=== PATIENT | female | born 1955 | race Caucasian/White ===

== ENCOUNTER 2019-12-02 16:17 | Outpatient (CLI) | payer OTHER, SELFPAY ==
[2019-12-02 16:52] LABS: Basophils Percent Auto 0.6 % (0.2-1.2); Eosinophils Absolute Auto 0.4 K/mm3 (0-0.3); Eosinophils Percent Auto 5.4 % (0-4.4); Hematocrit 40.4 % (37.0-47.0); Hemoglobin 13.3 g/dL (12.0-15.0); Immature Granulocyte Absolute 0.01 K/mm3 (0.00-0.031); Immature Granulocyte Percent A 0.2 % (0-0.5); Lymphocytes Absolute Auto 1.79 K/mm3 (0.9-3.2); Mean Corpuscular HGB Conc 32.9 g/dl (32-36); Mean Corpuscular Hemoglobin 31.5 pg (26-34); Mean Corpuscular Volume 95.7 fl (80-100); Mean Platelet Volume 10.7 fl (7.4-10.4); Monocytes Absolute Auto 0.6 K/mm3 (0.1-0.6); Monocytes Percent Auto 9.5 % (2.6-8.5); Neutrophils Absolute Auto 3.8 K/mm3 (1.3-6.7); Neutrophils Percent Auto 57.3 % (45.5-73.1); Platelet Count Result 252 k/mm3 (150-375); Red Blood Count 4.22 M/mm3 (4.2-5.4); Red Cell Distribution Width 13.2 % (11.5-14.5); White Blood Count 6.6 K/mm3 (4.5-10.0)
[2019-12-02 17:51] LABS: Vitamin D 25 Hydroxy 48.6 ng/mL
[2019-12-09 14:42] LABS: Testosterone Free 0.8 pg/mL (0.2-5.0); Testosterone Total 16 ng/dL (2-45)
== END 2019-12-02 16:18 | disposition home or self-care (01) ==
PROVIDERS: PCP Family Medicine
DX: R53.83 Other fatigue (principal); R53.81 Other malaise; E55.9 Vitamin D deficiency, unspecified; M94.9 Disorder of cartilage, unspecified; M89.9 Disorder of bone, unspecified; Z01.812 Encounter for preprocedural laboratory examination
CPT/HCPCS: 36415; 82306; 84402; 84403; 85025

== ENCOUNTER 2020-05-31 06:54 | Outpatient (NON) | payer OTHER, SELFPAY ==
[2020-05-31 17:42] LABS: SARS-CoV-2 RNA PCR Positive
== END 2020-05-31 06:55 ==
LOC: ANHCOVIDDT 07:00
PROVIDERS: PCP Physician Assistant; Visit Provider Physician Assistant
DX: U07.1 COVID-19 (principal)
CPT/HCPCS: C9803; U0003

== ENCOUNTER → 2020-08-18 16:00 | Outpatient (CLI) | payer OTHER, SELFPAY ==
--- NOTE | ~2020-08-18 | XR_ITS ---
EXAMINATION: XR chest 2V 08/18/2020 16:20 INDICATION: Atypical chest pain PROCEDURE: 2 views of the chest COMPARISON: No prior studies for comparison. FINDINGS: No focal pneumonia, edema. There is left basilar atelectasis. The cardiomediastinal silhoue tte is within normal limits. There are no pleural effusions. There is no pneumothorax suspected. T here is scoliosis IMPRESSION: 1: Left basilar atelectasis. Reviewed, dictated and finalized at location B.
== END ==
PROVIDERS: Visit Provider Physician Assistant
DX: R07.89 Other chest pain (principal); R91.8 Other nonspecific abnormal finding of lung field
CPT/HCPCS: 71046

== ENCOUNTER → 2020-08-29 13:43 | Outpatient (CLI) | payer OTHER, SELFPAY ==
--- NOTE | ~2020-08-29 | XR_ITS ---
EXAMINATION: XR chest 2V DATE: 08/29/2020 14:31 INDICATION: Unspecified acute lower respiratory infection. TECHNIQUE: Frontal and lateral views of the chest were obtained. COMPARISON: Chest 2 views 08/18/2020 FINDINGS: There is mild scarring at the lung apices. No pleural effusion or pneumothorax. The heart s ize is normal. IMPRESSION: 1. Stable mild scarring at the lung apices. Reviewed, dictated and finalized at location A.
== END ==
PROVIDERS: PCP Physician Assistant; Visit Provider Physician Assistant
DX: J22 Unspecified acute lower respiratory infection (principal)
CPT/HCPCS: 71046

== ENCOUNTER → 2020-12-14 18:02 | Outpatient (CLI) | payer OTHER, SELFPAY ==
--- NOTE | ~2020-12-14 | DEXA_ITS ---
Bone Density Report Name: Mona Malone Age: 65 Sex: Female Ethnicity: White Date of : 1955 Indication: postmenopausal; screening for osteoporosis; height loss; prior fracture; Referring Provider: Sarath Boston Study: Bone densitometry was performed. Exam Date: December 14, 2020 Accession number: [id number] Bone Density: Region BMD T-score Z-score Classification AP Spine (L1-L4) 0.715 -3.0 -1.3 Osteoporosis Femoral Neck (Right) 0.554 -2.7 -1.2 Osteoporosis Total Hip (Right) 0.571 -3.0 -1.8 Osteoporosis World Health Organization criteria for BMD impression classify patients as: Normal (T-score at or above -1.0), Osteopenia (T-score between -1.0 and -2.5), or Osteoporosis (T-score at or below -2.5). 10-year Fracture Risk: FRAX not reported because: Some T-score for Spine Total or Hip Total or Femoral Neck at or below -2.5 Clinical Information Provided by Patient: Has had a low trauma fracture Has used the following medications: Vitamin D Patient maximum height was 68.5 Menopause Age: 46 No regular weight bearing exercise Drinks caffeinated beverages Onset of menses at age 16 Number of children 3 Impression: The patient has established osteoporosis, based on the Total Spine T-score and the existence of a prior fracture. The patient has risk factors, including: previous fracture. Discussion: HIGH RISK OF FRACTURE. BONE DENSITY IS UNDESIRABLY LOW AT ONE OR MORE SKELETAL SITES, CONSISTENT WITH POSTMENOPAUSAL OSTEOPOROSIS. This patient's lowest T-score, in a patient who has previously fractured, meets the World Health Organization's (WHO) criteria for severe osteoporosis. In untreated patients, the risk of osteoporotic fracture increases approximately two-fold for each 1.0 SD decrease in T-score. Low bone density is not the only risk factor for fracture; also consider factors such as patient's age, frailty or poor health, risk of falling, risk of injury, previous osteoporotic fracture, family history of osteoporosis, cigarette smoking, low body weight, etc. Not everyone with low bone mineral density has osteoporosis; osteomalacia and other metabolic bone disorders should also be considered. Patients who have osteoporosis should be evaluated for specific diseases and conditions (secondary causes) that may cause or contribute to bone loss. The [place] [employer]ocr[employer] (AACE) and National Osteoporosis Foundation (NOF) recommend pharmacologic intervention for all postmenopausal women whose T-score is in this range. The patient should follow a healthful lifestyle (good nutrition with adequate calcium and vitamin D, and appropriate weight-bearing exercise). Follow-Up: Consider a repeat BMD and Vertebral Fracture Assessment (VFA) exam in 2 years or sooner if medically necessary, to reassess this patient's status. Reported by: DEE on 0
== END ==
PROVIDERS: PCP Family Medicine; Visit Provider Family Medicine
DX: M81.0 Age-related osteoporosis without current pathological fracture (principal)
CPT/HCPCS: 77080

== ENCOUNTER → 2021-01-22 18:02 | Outpatient (CLI) | payer OTHER, SELFPAY ==
--- NOTE | ~2021-01-22 | XR_ITS ---
EXAMINATION: XR lumbar spine 2-3V DATE: 01/22/2021 18:40 INDICATION: Low back pain. TECHNIQUE: 3 views of lumbar spine were obtained. COMPARISON: Lumbar spine radiographs 11/17/2005 FINDINGS: There is 31 degrees levoscoliosis of thoracolumbar spine. There is 3 mm anterolisthesis of L4 on L5 and 5 mm anterolisthesis of L5 on S1. Vertebral body heights are normal. There is mildly dec reased disc height at L4-L5 and moderately decreased disc height at L5-S1. There is severe facet join t osteoarthritis in lower lumbar spine. There is a left hip arthroplasty. IMPRESSION: 1. Moderate lumbar spondylosis. 2. Thoracolumbar levoscoliosis. Reviewed, dictated and finalized at location A.
== END ==
PROVIDERS: PCP Family Medicine; Visit Provider Physician Assistant
DX: M47.896 Other spondylosis, lumbar region (principal)
CPT/HCPCS: 72100

== ENCOUNTER → 2023-02-10 15:12 | Outpatient (CLI) | payer MEDICARE, OTHER, SELFPAY ==
--- NOTE | ~2023-02-10 | XR_ITS ---
EXAMINATION: XR shoulder LT min 2V DATE: 02/10/2023 15:27 INDICATION: Left shoulder pain TECHNIQUE: AP internally and externally rotated, AP oblique externally rotated and axillary views of the left shoulder were obtained. COMPARISON: None FINDINGS: Normal alignment. No fracture. Mild glenohumeral osteoarthritis with mild nonuniform joint space henrry rowing and small marginal osteophyte along the inferior humeral head. Minimal acromioclavicular osteo arthritis. Soft tissues are unremarkable. IMPRESSION: The left glenohumeral and minimal acromioclavicular osteoarthritis. No acute osseous abnormality. Reviewed, dictated and finalized at location A. IMPRESSION: The left glenohumeral and minimal acromioclavicular osteoarthritis. No acute os seous abnormality.
== END ==
PROVIDERS: PCP Physician Assistant; Visit Provider Physician Assistant
DX: M19.012 Primary osteoarthritis, left shoulder (principal)
CPT/HCPCS: 73030

== ENCOUNTER 2023-08-18 12:31 | Outpatient (CLI) | payer MEDICARE, OTHER, SELFPAY ==
--- NOTE | ~2023-08-18 | XR_ITS ---
EXAMINATION: XR shoulder RT min 2V INDICATION: Right shoulder pain TECHNIQUE: Four views of the right shoulder are submitted. COMPARISON: None FINDINGS: Normal alignment. No fracture. Glenohumeral and acromioclavicular joint spaces are normal. Soft tissues are unremarkable. Thoracic dextroscoliosis is noted. IMPRESSION: 1. No acute osseous abnormality. Reviewed, dictated and finalized at location F.
== END 2023-08-18 12:32 ==
PROVIDERS: PCP Physician Assistant; Visit Provider Physician Assistant
DX: M25.511 Pain in right shoulder (principal)
CPT/HCPCS: 73030

== ENCOUNTER 2023-09-09 08:18 | Outpatient (CLI) | payer MEDICARE, OTHER, SELFPAY ==
--- NOTE | ~2023-09-09 | XR_ITS ---
EXAMINATION: XR lg joint inject/asp w image DATE: 09/09/2023 09:21 INDICATION: Right shoulder pain TECHNIQUE: A time-out was performed to verify the patient's name, date of , and procedure to b e performed. The procedure including the risks, benefits, and alternatives was discussed with the pat ient. Risks discussed included bleeding and infection. The patient understood the risks and agreed to proceed. The skin overlying the rotator cuff interval of the right glenohumeral joint was prepped a nd draped in usual sterile fashion. Anesthetic was administered with 1% lidocaine subcutaneously. A 22 G needle was advanced under fluoroscopic guidance into the joint. Injection of 1 mL of Omnipaque 240 confirmed intra-articular position of the needle. Subsequently, injectate consisting of 4 mm a 3:1 mixture of 1% lidocaine: 40 mg/mL Kenalog for a total dosage of 40 mg Kenalog was instilled. Wash out of contrast was seen confirming intra-articular administration. The needle was removed and the en try site was cleaned and dressed. There were no immediate complications. Fluoroscopy exposure time w as 0.1 minutes. The total number of images was 2. FINDINGS: Real-time fluoroscopy demonstrates the needle in the right glenohumeral joint. Patient's pa in prior to procedure:1/10. Patient's pain following the procedure: 0/10. IMPRESSION: 1. Successful right glenohumeral joint injection of local anesthetic and steroid with decrease in the patient's presenting pain. Reviewed, dictated and finalized at location A. IMPRESSION: 1. Successful right glenohumeral joint injection of local anesthetic and steroi d with decrease in the patient's presenting pain.
== END 2023-09-09 08:19 | disposition home or self-care (01) ==
LOC: ANHIMG 08:20
PROVIDERS: PCP Physician Assistant; Visit Provider Physician Assistant
DX: M25.511 Pain in right shoulder (principal)
CPT/HCPCS: 20610; 77002; J3301; Q9966

== ENCOUNTER 2023-10-02 10:01 | Outpatient (CLI) | payer MEDICARE, OTHER, SELFPAY ==
--- NOTE | ~2023-10-02 | MR_ITS ---
MRI of the right shoulder Technique: Axial proton-density fat-sat images, coronal proton density fat-sat and T2 fat-sat images, and sagittal T1-weighted and T2 fat-sat images were acquired. Clinical History: Pain Findings: There is mild AC joint degenerative change. No subacromial spur evident. Coracoclavicular, coracoacromial, and coracohumeral ligaments are intact. There is severe supraspinatus tendinosis and mild infraspinatus tendinosis. Questionable minimal burs al surface fraying of the distal posterior supraspinatus tendon, no high-grade partial or full-thickn ess tear evident. Subscapularis tendon is intact with mild to moderate tendinosis. Tendon of the long head of the biceps is intact. There is probable tearing at the superior labrum, without definite anterior or posterior extension. There is diffuse high-grade chondromalacia the glenohumeral joint with small inferior medial humeral head osteophyte. Inferior glenohumeral ligament is intact. There is a moderate glenohumeral joint eff usion with debris or synovitis at the axillary pouch region. There is fluid distention of the subacro mial/subdeltoid bursa. No muscle atrophy or edema evident. Impression: Rotator cuff tendinosis, as detailed above, with questionable minimal bursal surface fraying of the d istal, posterior supraspinatus tendon. No high-grade partial or full-thickness rotator cuff tear seen . Superior labral tear without anterior or posterior extension. Moderate degenerative change of the glenohumeral joint, as detailed above, with associated moderate g lenohumeral joint effusion with debris or synovitis of the axillary pouch. Subacromial/subdeltoid bursitis. Reviewed, dictated and finalized at location . Impression: Rotator cuff tendinosis, as detailed above, with questionable minimal bursal nichols rface fraying of the distal, posterior supraspinatus tendon. No high-grade part ial or full-thickness rotator cuff tear seen. Superior labral tear without anterior or posterior extension. Moderate degenerative change of the glenohumeral joint, as detailed above, with associated moderate glenohumeral joint effusion with debris or synovitis of th e axillary pouch. Subacromial/subdeltoid bursitis.
== END 2023-10-02 10:02 ==
LOC: MICIMG 10:02
PROVIDERS: PCP Physician Assistant; Visit Provider Physician Assistant
DX: M75.51 Bursitis of right shoulder (principal); M19.011 Primary osteoarthritis, right shoulder
CPT/HCPCS: 73221

== ENCOUNTER 2024-09-14 18:04 | Emergency (ER) | payer MEDICARE, OTHER, SELFPAY ==
[2024-09-14 18:06] VITALS: BP 167/93; PULSE 92; RESP 14; TEMP 36.6; O2SAT 100
--- OUTSIDE RECORDS SUMMARY | 2024-09-14 18:30 | XMS_ITS | Clinical Summary ---
Author Organization [facility] [place] Address [facility] [place] [address] Care Team Providers Care Account Manager Sales Representative Name Role Phone Candido Mosqueda MD Unavailable [phone] Sarath Boston MD Primary Care Provider [phone] Allergies Active Allergy Reactions Criticality Noted Date Comments Adhesive Redness Low 08/15/2020 Clindamycin Nausea & Vomiting Low 05/23/2022 Erythromycin Stomach upset Low 06/13/2020 Stomach/GI Upset Morphine Hallucinations Medium 08/15/2020 Sodclmvh-Bpnrfnxvxw-Zgp ymyxin Swelling Medium 08/15/2020 redness Penicillins Unknown 10/30/2018 As a child. Tolerated Ancef 2 gms with hip replacement 09/07/20. Shellfish Nausea & Vomiting Low 02/20/2022 Medications Trelegy Ellipta 100-62.5-25 mcg inhaler Inhale 1 puff daily 1 Active pregabalin (LYRICA) 200 mg capsule Take 200 mg by mouth 2 (two) times a day 1 Active alendronate (FOSAMAX) 70 mg tablet Take 70 mg by mouth every 7 days Active fluticasone propionate (FLONASE) 50 mcg/actuation nasal spray Administer 1 spray into each nostril daily Active pantoprazole DR (PROTONIX) 40 mg EC tablet Take 40 mg by mouth daily Active Dupixent Pen pen injector Inject 300 mg under the skin every 14 (fourteen) days and 15 of the month 2 Active propranoloL (INDERAL) 40 mg tabletIndicatio ns:Essential Tremor Take 40 mg by mouth 2 (two) times a day Active albuterol HFA (PROVENTIL HFA,VENTOLIN HFA,PROAIR HFA) 90 mcg/actuation inhaler Inhale 2 puffs every 6 (six) hours as needed for wheezing Active cyclobenzaprine (FLEXERIL) 10 mg tablet Take 10 mg by mouth 3 (three) times a day as needed for muscle spasms Active acetaminophen (TYLENOL) 325 mg tablet Take 650 mg by mouth every 6 (six) hours as needed for pain Active diphenhydrAMINE (BENADRYL) 25 mg capsule Take 50 mg by mouth nightly as needed for sleep Active pseudoephedrine (SUDAFED) 30 mg tabletIndicatio ns:Nasal Congestion Take 30 mg by mouth every 4 (four) hours as needed for congestion Active multivitamin/ir on/folic acid (CENTRUM COMPLETE ORAL) Take 1 tablet by mouth daily Active UNABLE TO FIND Take 2 each by mouth daily Med Name: Prevagen dietary supplement for memory loss Active meloxicam (MOBIC) 15 mg tablet Take 1 tablet (15 mg total) by mouth daily 30 tablet 1 3 Active Active Problems Problem Noted Date Diagnosed Date Primary osteoarthritis of right hip 05/14/2022 Overview (05/14/2022): Added automatically from request for surgery [id number] Hoarseness 02/04/2021 Shortness of breath 02/04/2021 Intractable vomiting 09/13/2020 History of total left hip replacement 09/13/2020 Primary osteoarthritis of left hip 08/10/2020 Overview (08/10/2020): Added automatically from request for surgery [id number] Arthralgia of shoulder 02/18/2012 Aerophagia Immunizations Immunization Administration Dates Next Due [employer] ([employer]) SARS-CoV-2 Vaccination 08/03/2020 Surgical History Surgery Date Site/Laterality Comments VEIN LIGATION COLONOSCOPY Medical History Medical History Date Comments ADHD (attention deficit hyperactivity disorder) Osteoarthritis Primary osteoarthritis of left hip GERD (gastroesophageal reflux disease) Alopecia Allergic rhinitis Autoimmune disease Nasal drainage Change in voice Hoarseness Nasal congestion Family History Medical History Relation Name Comments Cancer Father Arthritis Mother Relation Name Status Comments Father Mother Social History Tobacco Use Types Packs/Day Years Used Date Smoking Tobacco: Former Cigarettes 2 5 1 982 - 1987 Smokeless Tobacco: Never Tobacco Cessation:Counseling Given: Not Answered Alcohol Use Standard Drinks/Week Comments Not Currently 0 (1 standard drink = 0.6 oz pur e alcohol) recovering alcoholic AUDIT-C Answer Date Recorded Q1: How often do you have a drink containing alcohol? Never 06/28/2022 Q2: How many drinks containi ng alcohol do you have on a typical day when you are drinking? Patient does not drink Q3: How often do you have si x or more drinks on one occasion? 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 Not on file Not on file Obstetrics History Para Term AB IAB SAB Ectopic Multiple Livin g Live Births 3 3 3 Date Outcome GA Total Labor Labor/2nd/3rd Weight Sex Type Anes PTL Jacquie A1 A5 Name Clin Term Term Term Last Filed Vital Signs Vital Sign Reading Time Taken Comments Blood Pressure 107/59 06/29/2022 8:15 AM TEST ENGINE EVALUATOR Pulse 68 06/29/2022 8:15 AM TEST ENGINE EVALUATOR Temperature 36.3 C (97.4 F) 06/29/2022 4:00 AM TEST ENGINE EVALUATOR Respiratory Rate 16 06/29/2022 8:15 AM TEST ENGINE EVALUATOR Oxygen Saturation 100% 06/29/2022 8:15 AM TEST ENGINE EVALUATOR Inhaled Oxygen Concentration - - Weight 66.3 kg (146 lb 2.6 oz) 06/28/2022 8:00 A M TEST ENGINE EVALUATOR Height 172.7 cm (5' 8 ) 06/28/2022 8:00 AM TEST ENGINE EVALUATOR Body Mass Index 22.22 06/28/2022 8:00 AM TEST ENGINE EVALUATOR Plan of Treatment Health Maintenance Due Date Last Done Comments Colon Cancer Screening-Colonoscopy 1955 Depression Screening 1955 Hepatitis C Screening 1955 Osteoporosis Screening-Bone Density Scan 1956 Hepatitis B Screening 1974 Pneumococcal vaccine 65+ (1 of 1 - PCV) 2006 Zoster Vaccine (1 of 2) 2006 Well Visit 65+ 2021 Fall Risk Assessment 06/29/2023 06/29/2022 Covid-19 Vaccine (2 - 2023-2 5 season) 2024 08/03/2020 Influenza Vaccine (#1) 2024 , 01/24/2022, 03/06/2021, Additional history exists Breast Cancer Screening-Mammogram 06/12/2024 024, 08/04/2017 DTaP/Tdap/Td Vaccine (2 - Td or Tdap) 06/24/2028 06/24/2018 Medical Devices Implanted Type Area Record Systems Analyst Device Identifier Shelf Expiration Date Model / Serial / Lot [employer] [id number] Screw Bone Trident Ii L35mm Od6.5mm Low Profile Hexagonal Sterile - [id number] Implanted:Qty: 1 on 09/07/2020 by Candido Mosqueda MD at [facility] Left: Hip [employer] [id number] 11/21/2024 3863-2049 / / [id number] Avi Bi[employer]rep Bone Preparation Kit Medium Restrictor Implanted:Qty: 1 on 09/07/2020 by Candido Mosqueda MD at [facility] Left: Hip [employer] 02/23/2025 9617-925-385 / / [id number] Description:item listed / ch arged on supply screen [employer] [id number] V40 36mm Anatomic Hip +0mm Offset Taper Head Femoral Biolox Delta - [id number] Implanted:Qty: 1 on 09/07/2020 by Candido Mosqueda MD at [facility] Left: Hip [employer] [id number] 05/16/2025 [id number] / / [id number] [employer] 9015-6172 Screw Bone Trident Ii L50mm Od6.5mm Low Profile Hexagonal Sterile - [id number] Implanted:Qty: 1 on 09/07/2020 by Candido Mosqueda MD at [facility] Left: Hip [employer] [id number] 03/31/2024 2245-9459 / / [id number] [employer] [id number] Shell Acetabular Trident Ii Tritanium F Od56mm Hip 5 Screw Hole Cluster Sterile - [id number] Implanted:Qty: 1 on 09/07/2020 by Candido Mosqueda MD at [facility] Left: Hip [employer] [id number] 04/25/2025 702-04-56F / / [id number] [employer] 5761-0953 Screw Bone Trident Ii L35mm Od6.5mm Low Profile Hexagonal Sterile - [id number] Implanted:Qty: 1 on 09/07/2020 by Candido Mosqueda MD at [facility] Left: Hip [employer] [id number] 05/04/2024 8317-7371 / / [id number] [employer] 0434-1342 Screw Bone Trident Ii L20mm Od6.5mm Low Profile Hexagonal Sterile - [id number] Implanted:Qty: 1 on 09/07/2020 by Candido Mosqueda MD at [facility] Left: Hip [employer] [id number] 03/28/2025 0516-1685 / / [id number] [employer] 623-00-36f 36mm 7.9mm Hip 0d F Liner Acetabular X3 - [id number] Implanted:Qty: 1 on 09/07/2020 by Candido Mosqueda MD at [facility] Left: Hip [employer] [id number] 06/19/2025 623-00-36F / / [id number] [employer] 6191-1-010 Simplex P Radiopaque Full Dose Cement Bone Sterile - [id number] Implanted:Qty: 1 on 09/07/2020 by Candido Mosqueda MD at [facility] Left: Hip [employer] 05/25/2021 6191-1-010 / / [id number] [employer] 6191-1-010 Simplex P Radiopaque Full Dose Cement Bone Sterile - [id number] Implanted:Qty: 1 on 09/07/2020 by Candido Mosqueda MD at [facility] Left: Hip [employer] 05/25/2021 6191-1-010 / / [id number] [employer] 0580-1-442 Honaker V40 Cemented Hip 2 44mm Offset Stem Femoral - [id number] - [id number] Implanted:Qty: 1 on 09/07/2020 by Candido Mosqueda MD at [facility] Left: Hip [employer] [id number] 07/08/2021 0580-1-442 / [id number] / [id number] [employer] Simplex P Radiopaque Full Dose Cement Bone Sterile 6191-1-010 - [id number] Implanted:Qty: 1 on 06/28/2022 by Candido Mosqueda MD at [facility] Right: Hip [employer] 11/22/2024 6191-1-010 / / [id number] [employer] Simplex P Radiopaque Full Dose Cement Bone Sterile 6191-1-010 - [id number] Implanted:Qty: 1 on 06/28/2022 by Candido Mosqueda MD at [facility] Right: Hip [employer] 11/22/2024 6191-1-010 / / [id number] [employer] Bioprep Preparation Plug School Bus Aide [place] Curette Suction Femoral [id number] - [id number] Implanted:Qty: 1 on 06/28/2022 by Candido Mosqueda MD at [facility] Right: Hip [employer] 02/23/2027 [id number] / / [id number] [employer] Shell Acetabular Trident Ii Tritanium E Od54mm Hip 5 Screw Hole Cluster Sterile 702-04-54e - [id number] Implanted:Qty: 1 on 06/28/2022 by Candido Mosqueda MD at [facility] Right: Hip [employer] [id number] 04/03/2027 702-04-54E / / [id number] [employer] Screw Bone Trident Ii L50mm Od6.5mm Low Profile Hexagonal Sterile 7579-1260 - [id number] Implanted:Qty: 1 on 06/28/2022 by Candido Mosqueda MD at [facility] Right: Hip [employer] [id number] 03/19/2027 4070-9134 / / [id number] [employer] Screw Bone Trident Ii L25mm Od6.5mm Low Profile Hexagonal Sterile 0655-0056 - [id number] Implanted:Qty: 1 on 06/28/2022 by Candido Mosqueda MD at [facility] Right: Hip [employer] [id number] 04/29/2027 1243-3171 / / [id number] [employer] Insert Trident 0deg X3 36mm Id 723-00-36e - [id number] Implanted:Qty: 1 on 06/28/2022 by Candido Mosqueda MD at [facility] Right: Hip [employer] [id number] 04/26/2027 723-00-36E / / [id number] [employer] Honaker V40 Cemented Hip 1 37.5mm Offset Stem Femoral 0580-1-371 - [id number] - [id number] Implanted:Qty: 1 on 06/28/2022 by Candido Mosqueda MD at [facility] Right: Hip [employer] [id number] 01/30/2027 0580-1-371 / [id number] / [id number] [employer] V40 36mm Anatomic Hip +0mm Offset Taper Head Femoral Biol[employer] Delta [id number] - [id number] Implanted:Qty: 1 on 06/28/2022 by Candido Mosqueda MD at [facility] Right: Hip [employer] [id number] 03/20/2027 [id number] / / [id number] Procedures Procedure Name Priority Date/Time Associated Diagnosis Comments SCREENING MAMMOGRAM BILATERAL W JOSE LUIS Schedule Routine, Read Routine (OP Routine) 06/12/2023 11:19 AM TEST ENGINE EVALUATOR Encounter for screening mammogram for malignant neoplasm of breast from Last 3 Months or Most Recently Relevant to Health Maintenance Results * Screening Mammogram Bilateral W Jose Luis (06/12/2023 11:19 AM TEST ENGINE EVALUATOR) Anatomical Region Laterality Modality Breast Bilateral Mammography Impressions 06/12/2023 11:45 AM TEST ENGINE EVALUATOR BI-RADS ATLAS category (overall): 1 - Negative There is no mammographic evidence of malignancy. A 1 year screening mammogram is recommended. The patient has been or will be contacted. We recommend annual screening mammography for women at average risk of breast cancer beginning at age 40, based on guidelines of the [employer] (ACR Practice Parameter for the Performance of Screening and Diagnostic Mammography) and [employer]. For women with and elevated risk of breast cancer, please refer to the ACR Practice Parameter for specific screening recommendations. The patient will be entered into a reminder system with a target due date of 1 year for her next screening exam. Narrative 06/12/2023 11:45 AM TEST ENGINE EVALUATOR Screening Mammogram Bilateral W Jose Luis: 06/12/23 The study was acquired using full field digital technology and interpreted from soft copy. 2D digital mammographic views, as well as 3D digital tomosynthesis were performed in the CC and MLO projections. CLINICAL: Encounter for screening mammogram for malignant neoplasm of breast. No relevant medical history has been documented for this patient. No known family history of breast cancer. COMPARISONS: 08/04/2017 Screening Mammogram Bilateral W Jose Luis 10/20/2007 Screening Mammogram 2D Bilateral BREAST TISSUE: The breasts have scattered areas of fibroglandular density. FINDINGS: No suspicious masses, suspicious calcifications, or other suspicious findings are seen within either breast. There has been no suspicious change. us Sarath Boston MD IMG MAMMO PROCEDURES Final Re sult from Last 3 Months or Most Recently Relevant to Health Maintenance Insurance [facility] CLAIMS [facility] CLAIMS MEDICARE MEDICARE FOR LIFE Advance Directives For more information, please contact: [phone] Documents on File Type Date Recorded Patient Anesthesiologist/Physician Expl anation Advance Directives and Livin g Will 11/22/2020 1:27 PM ADVANCE DIRECTIVE 09/07/2020 11:41 AM * Full Code (Latest Code Status on File) Date Activated Date Inactivated Comments 06/28/2022 2:04 PM 06/29/2022 6:15 PM * Full Code Date Activated Date Inactivated Comments 09/13/2020 2:46 PM 09/15/2020 10:36 PM * Full Code Date Activated Date Inactivated Comments 09/07/2020 4:30 PM 09/08/2020 7:07 PM Care Teams Account Manager Sales Representative Relationship Specialty Start Date End Date Sarath Boston MD [address] [place], [place] [address], [place] [address] PCP - General Family Medicine 11/30/20 Candido Mosqueda MD [address] [facility] [address] [place] [address] Consulting Physician Orthopedic Surgery 09/08/20
--- OUTSIDE RECORDS SUMMARY | 2024-09-14 18:30 | XMS_ITS | Encounter Summary ---
Author Organization [facility] Address [address] [place] [address] Care Team Providers Care Insurance Underwriter Name Role Phone Unavailable Primary Care Provider Unavailabl e Encounter Details Date Type Department Care Team (Late st Contact Info) Description 07/12/2019 Lab Requisition [facility] [address] [place] [id number] Eliazar Harris MD [address] [place] [address] Social History Tobacco Use Types Packs/Day Years Used Date Smoking Tobacco: Never Assessed Comments Unknown Sex and Gender Information Value Date Recorded Sex Assigned at Not on file Legal Sex Female 10:43 AM CATIA DESIGNER Gender Identity Not on file Sexual Orientation Not on file documented as of this encounter Plan of Treatment Not on file documented as of this encounter Procedures Procedure Name Priority Date/Time Associated Diagnosis Comments DERMATOPATHOLOGY Routine 07/08/2019 12:0 0 AM CATIA DESIGNER documented in this encounter Results * DERMATOPATHOLOGY (07/08/2019 12:00 AM CATIA DESIGNER) Case Report Dermatopathology Report Case: [id number] Authorizing Provider: Eliazar Harris MD Collected: 07/08/2019 12:00 AM Ordering Location: [facility] Received: 07/12/2019 11:01 AM Pathologist: Kena Cortés MD Specimens: A) - Skin, left FA B) - Skin, right hand 0 1:01 PM CATIA DESIGNER DERMATOPATHOLOGY LABORATORY Final Diagnosis Specimen A. SKIN, left FA: HYPERTROPHIC ACTINIC KERATOSIS, PIGMENTED (L57.0) Specimen B. SKIN, right hand: BENIGN VERRUCOUS KERATOSIS (L82.1) EPIDERMAL NECROSIS SUGGESTIVE OF EXCORIATION (L98.499) 0 1:01 PM [facility] DERMATOPATHOLOGY LABORATORY Clinical History A: Nevus vs MM vs other. 01E535. B: Dermatitis vs prurigo. 24T809. 0 1:01 PM [facility] DERMATOPATHOLOGY LABORATORY Gross Description Specimen A: Received is one formalin filled container labeled with the patient's name and designated left FA. The specimen consists of a shave biopsy measuring 0d5j8hs. Jar 0. Specimen B: Received is one formalin filled container labeled with the patient's name and designated right hand. The specimen consists of a shave biopsy measuring 3l0e1ld. Jar 0. 0 1:01 PM [facility] DERMATOPATHOLOGY LABORATORY Microscopic Description Specimen A. SKIN, left FA: There is alternating orthokeratosis and parakeratosis. Along the undersurface of the epidermis, there are buds of atypical keratinocytes in a disorderly arrangement. There is prominent pigmentation in some of the keratinocytes. Specimen B. SKIN, right hand: Sections show hyperkeratosis, papillomatosis, hypergranulosis, and acanthosis. These histological findings can be seen in a verruca vulgaris or a seborrheic keratosis. The epidermis is focally necrotic and covered with a scale-crust. There is fibrin at the base. 0 1:01 PM [facility] DERMATOPATHOLOGY LABORATORY Disclaimer An external and internal positive and negative controls are appropriate for the histochemical, immunohistochemical and immunofluorescence stain(s) in this case (if any), except where stated explicitly. The performance characteristics of the stain(s) cited in this report were developed and its performance characteristic determined by the Dermatopathology Laboratory at [facility], directed by Dr. Ginny Cortés. These tests need not be, and therefore are not, approved by the [place] Food and Drug Administration. The tests are used for clinical purposes. Billing Codes Specimen Charges Stain Charges 27188 27800 1 1 0 1:01 PM [facility] DERMATOPATHOLOGY LABORATORY Embedded Images 0 1:01 PM [facility] DERMATOPATHOLOGY LABORATORY Pathology/Cytology TISSUE SPECIMEN FROM SKIN / Unknown 07/08/2019 07/12/2019 11:01 AM [facility] Miscellaneous samples (specimen) TISSUE SPECIMEN FROM SKIN / Unknown 07/08/2019 07/12/2019 11:01 AM CATIA DESIGNER us Eliazar Harris MD LAB - PATHOLOGY/CYTOLOGY ORDER JOYCE Final Result DERMATOPATHOLOGY LABORATORY [facility] - Department of Dermatology [address] [place] [address], 5th [place] [address], [facility] [phone] documented in this encounter Visit Diagnoses Not on filedocumented in this encounter
--- OUTSIDE RECORDS SUMMARY | 2024-09-14 18:30 | XMS_ITS | Referral Summary ---
Author Organization [facility] Address [address] [place] [address] Care Team Providers Care Furniture Manager Name Role Phone Candido Mosqueda MD Unavailable [phone] Sarath Boston MD Primary Care Provider [phone] Allergies Active Allergy Reactions Criticality Noted Date Comments Adhesive Redness Low 08/15/2020 Clindamycin Nausea & Vomiting Low 05/23/2022 Erythromycin Stomach upset Low 06/13/2020 Stomach/GI Upset Morphine Hallucinations Medium 08/15/2020 Jkozweqs-Jwiqreejbn-Sfz ymyxin Swelling Medium 08/15/2020 redness Penicillins Unknown [...] the skin every 14 (fourteen) days and 15th of the month 2 Active propranoloL (INDERAL) [...] (05/14/2022): Added automatically from request for surgery [id number] Hoarseness 02/04/2021 Shortness of breath 02/04/2021 Intractable vomiting 09/13/2020 History of total left hip replacement 09/13/2020 Primary osteoarthritis of left hip 08/10/2020 Overview (08/10/2020): Added automatically from request for surgery [id number] Arthralgia of shoulder 02/18/2012 Aerophagia Immunizations Immunization Administration Dates Next Due Masterseek (J&J) SARS-CoV-2 Vaccination 08/03/2020 Social History Tobacco Use Types Packs/Day Years Used Date Smoking Tobacco: Former Cigarettes 2 5 1 982 - 1986 Smokeless Tobacco: Never Tobacco Cessation:Counseling Given: Not [...] on file Legal Sex Female 9:29 PM HOG COOLER Gender Identity Not on file Sexual Orientation Not on file Occupation Industry Job Start Date Job End Date [employer] Not on file Not on file Not on file Last Filed Vital Signs Vital Sign Reading Time Taken Comments Blood Pressure 107/59 06/29/2022 8:15 AM HOG COOLER Pulse 68 06/29/2022 8:15 AM HOG COOLER Temperature 36.3 C (97.4 F) 06/29/2022 4:00 AM HOG COOLER Respiratory Rate 16 06/29/2022 8:15 AM HOG COOLER Oxygen Saturation 100% 06/29/2022 8:15 AM HOG COOLER Inhaled Oxygen Concentration - - Weight 66.3 kg (146 lb 2.6 oz) 06/28/2022 8:00 A M HOG COOLER Height 172.7 cm (5' 8 ) 06/28/2022 8:00 AM HOG COOLER Body Mass Index 22.22 06/28/2022 8:00 AM HOG COOLER Plan of Treatment Not on file Medical Devices Implanted Type Area Geriatric Social Worker Device Identifier Shelf Expiration Date Model / Serial / Lot [employer] 4829-7577 Screw Bone Trident Ii L35mm Od6.5mm Low Profile Hexagonal Sterile - [id number] Implanted:Qty: 1 on 09/07/2020 by Candido Mosqueda MD at [facility] Left: Hip [employer] [id number] 11/21/2024 8217-8062 / / [id number] [employer] Preparation Kit Medium Restrictor Implanted:Qty: 1 on 09/07/2020 by Candido Mosqueda MD at [facility] Left: Hip [employer] 02/23/2025 1057-910-750 / / [id number] Description:item listed / ch arged on supply screen [employer] [id number] V40 36mm Anatomic Hip +0mm Offset Taper Head Femoral Biolox Delta - [id number] Implanted:Qty: 1 on 09/07/2020 by Candido Mosqueda MD at [facility] Left: Hip [employer] [id number] 05/16/2025 [id number] / / [id number] [employer] 2856-0480 Screw Bone Trident Ii L50mm Od6.5mm Low Profile Hexagonal Sterile - [id number] Implanted:Qty: 1 on 09/07/2020 by Candido Mosqueda MD at [facility] Left: Hip [employer] [id number] 03/31/2024 2132-2843 / / [id number] [employer] 702--56f Shell Acetabular Trident Ii Tritanium F Od56mm Hip 5 Screw Hole Cluster Sterile - [id number] Implanted:Qty: 1 on 09/07/2020 by Candido Mosqueda MD at [facility] Left: Hip [employer] [id number] 04/25/2025 702-04-56F / / [id number] [employer] 9797-5179 Screw Bone Trident Ii L35mm Od6.5mm Low Profile Hexagonal Sterile - [id number] Implanted:Qty: 1 on 09/07/2020 by Candido Mosqueda MD at [facility] Left: Hip [employer] [id number] 05/04/2024 3161-9014 / / [id number] [employer] 5435-5350 Screw Bone Trident Ii L20mm Od6.5mm Low Profile Hexagonal Sterile - [id number] Implanted:Qty: 1 on 09/07/2020 by Candido Mosqueda MD at [facility] Left: Hip [employer] [id number] 03/28/2025 0887-2472 / / [id number] [employer] 623-00-36f 36mm 7.9mm Hip 0d F Liner Acetabular X3 - [id number] Implanted:Qty: 1 on 09/07/2020 by Candido Mosqueda MD at [facility] Left: Hip [employer] [id number] 06/19/2025 623-00-36F / / [id number] [employer] 6191-1-010 Simplex P Radiopaque Full Dose Cement Bone Sterile - [id number] Implanted:Qty: 1 on 09/07/2020 by Candido Mosqueda MD at [facility] Left: Hip [employer] 05/25/2021 6191-1-010 / / [id number] [employer] 6191-1-010 Simplex P Radiopaque Full Dose Cement Bone Sterile - [id number] Implanted:Qty: 1 on 09/07/2020 by Candido Mosqueda MD at [facility] Left: Hip [employer] 05/25/2021 6191-1-010 / / [id number] [employer] 0580-1-442 [place] V40 Cemented Hip 2 44mm Offset Stem Femoral - [id number] - [id number] Implanted:Qty: 1 on 09/07/2020 by Candido Mosqueda MD at [facility] Left: Hip [employer] [id number] 07/08/2021 0580-1-442 / [id number] / [id number] [employer] Simplex P Radiopaque Full Dose Cement Bone Sterile 6191-1-010 - [id number] Implanted:Qty: 1 on 06/28/2022 by Candido Mosqueda MD at [facility] Right: Hip [employer] 11/22/2024 6191-1-010 / / [id number] [employer] Simplex P Radiopaque Full Dose Cement Bone Sterile 6191-1-010 - [id number] Implanted:Qty: 1 on 06/28/2022 by Candido Mosqueda MD at [facility] Right: Hip [employer] 11/22/2024 6191-1-010 / / [id number] [employer] Bi[employer]rep Preparation Plug Category Manager [place] Curette Suction Femoral [id number] - [id number] Implanted:Qty: 1 on 06/28/2022 by Candido Mosqueda MD at [facility] Right: Hip [employer] 02/23/2027 [id number] / / [id number] [employer] Shell Acetabular Trident Ii Tritanium E Od54mm Hip 5 Screw Hole Cluster Sterile 702-04-54e - [id number] Implanted:Qty: 1 on 06/28/2022 by Candido Mosqueda MD at [facility] Right: Hip [employer] [id number] 04/03/2027 702-04-54E / / [id number] [employer] Screw Bone Trident Ii L50mm Od6.5mm Low Profile Hexagonal Sterile 4674-7159 - [id number] Implanted:Qty: 1 on 06/28/2022 by Candido Mosqueda MD at [facility] Right: Hip [employer] [id number] 03/19/2027 3090-6178 / / [id number] [employer] Screw Bone Trident Ii L25mm Od6.5mm Low Profile Hexagonal Sterile 6724-0135 - [id number] Implanted:Qty: 1 on 06/28/2022 by Candido Mosqueda MD at [facility] Right: Hip [employer] [id number] 04/29/2027 5860-8331 / / [id number] [employer] Insert Trident 0deg X3 36mm Id 723-00-36e - [id number] Implanted:Qty: 1 on 06/28/2022 by Candido Mosqueda MD at [facility] Right: Hip [employer] [id number] 04/26/2027 723-00-36E / / [id number] [employer] [place] V40 Cemented Hip 1 37.5mm Offset Stem Femoral 0580-1-371 - [id number] - [id number] Implanted:Qty: 1 on 06/28/2022 by Candido Mosqueda MD at [facility] Right: Hip [employer] [id number] 01/30/2027 0580-1-371 / [id number] / [id number] [employer] V40 36mm Anatomic Hip +0mm Offset Taper Head Femoral Biol[employer] Delta [id number] - [id number] Implanted:Qty: 1 on 06/28/2022 by Candido Mosqueda MD at [facility] Right: Hip [employer] [id number] 03/20/2027 [id number] / / [id number] Procedures Procedure Name Priority Date/Time Associated Diagnosis Comments SCREENING MAMMOGRAM BILATERAL W JOSE LUIS Schedule Routine, Read Routine (OP Routine) 06/12/2023 11:19 AM HOG COOLER Encounter for screening mammogram for malignant neoplasm of breast from Last 3 Months or Most Recently Relevant to Health Maintenance Results * Screening Mammogram Bilateral W Jose Luis (06/12/2023 11:19 AM HOG COOLER) Anatomical Region Laterality Modality Breast Bilateral Mammography Impressions 06/12/2023 11:45 AM HOG COOLER BI-RADS ATLAS category (overall): 1 - Negative There is no mammographic evidence of malignancy. A 1 year screening mammogram is recommended. The patient has been or will be contacted. We recommend annual screening mammography for women at average risk of breast cancer beginning at age 40, based on guidelines of the [place] [employer] (ACR Practice Parameter for the Performance of Screening and Diagnostic Mammography) and [place] [employer]. For women with and elevated risk of breast cancer, please refer to the ACR Practice Parameter for specific screening recommendations. The patient will be entered into a reminder system with a target due date of 1 year for her next screening exam. Narrative 06/12/2023 11:45 AM HOG COOLER Screening Mammogram Bilateral W Jose Luis: 06/12/23 [...] Most Recently Relevant to Health Maintenance Insurance [facility] CLAIMS [facility] CLAIMS MEDICARE MEDICARE [facility] Advance Directives For more information, please contact: [phone] Documents on File Type Date Recorded Patient Researcher Expl anation Advance Directives and Livin g [...] 4:30 PM 09/08/2020 7:07 PM Care Teams Furniture Manager Relationship Specialty Start Date End Date Sarath Boston MD [address] [place] [id number] PCP - General Family Medicine 11/30/20 Candido Mosqueda MD [address] [address] Consulting Physician Orthopedic Surgery 09/08/20
--- OUTSIDE RECORDS SUMMARY | 2024-09-14 18:30 | XMS_ITS | Clinical Summary ---
Author Organization [facility] Address [facility] [place] [address] Care Team Providers Care Instructor Kindergarten Name Role Phone Sarath Boston MD Primary Care Provider [phone] Allergies Active Allergy Reactions Criticality Noted Date Comments Clindamycin Nausea and Vomiting Low 05/23/2022 Erythromycin GI Upset Low 06/13/2020 Stomach/GI Upset Morphine Hallucinations Medium 08/15/2020 Neomycin-Bacitracin Zn-Polymyx Swelling Medium 08/15/2020 redness Penicillins Rash,Unknown Medium 10/30/2018 As a child. Tolerated Ancef 2 gms with hip replacement 09/07/20. Shellfish-Derived Products Unknown 02/20/2022 Tape Redness Low 08/15/2020 Medications alendronate 70 MG tablet 1 Active pregabalin 200 MG capsule pregabalin 200 mg capsule 1 Active pantoprazole EC 40 MG tablet 1 Active fluticasone propionate 50 MCG/ACT nasal spray fluticasone propionate 50 mcg/actuation nasal spray,suspension Active HYDROcodone-rayshawn taminophen 5-325 MG tablet 1 Active albuterol sulfate HFA 108 (90 Base) MCG/ACT inhaler albuterol sulfate HFA 90 mcg/actuation aerosol inhaler Active diphenhydrAMINE 25 MG capsule Take 1 capsule (25 mg total) by mouth every 6 (six) hours as needed for Itching. Active pseudoephedrine 30 MG tablet Take 1 tablet (30 mg total) by mouth every 4 (four) hours as needed for Congestion. Active Naproxen Sodium 220 MG Cap Active DUPIXENT 300 MG/2ML Solution Pen-injector 2 Active cyclobenzaprine (FLEXERIL) 10 MG tablet 2 Active acetaminophen (TYLENOL) 325 MG tablet Take 2 tablets (650 mg total) by mouth every 6 (six) hours as needed for Pain. Active propranolol (INDERAL) 40 MG tablet Active fluticasone-chantale meterol (ADVAIR HFA) 230-21 MCG/ACT inhalerIndicati ons:JACINTO (dyspnea on exertion) Inhale 2 puffs into the lungs 2 (two) times daily. Rinse and spit after use 12 g 6 3 Active Additional Information Patient not taking.Reported on 10/03/2023 montelukast (SINGULAIR) 10 MG tabletIndicatio ns:Seasonal allergies Take 1 tablet (10 mg total) by mouth nightly at bedtime. 30 tablet 6 4 Active Active Problems Problem Noted Date Diagnosed Date History of COVID-19 04/03/2021 Aerophagia 04/03/2021 Hoarseness 02/04/2021 Shortness of breath 02/04/2021 History of total left hip replacement 09/13/2020 Intractable vomiting 09/13/2020 Primary osteoarthritis of left hip 08/10/2020 Overview (04/03/2021): Added automatically from request for surgery [id number] Arthralgia of shoulder 02/18/2012 Encounters Date Type Department Care Team Description 06/16/2024 Telephone [facility] - [address] [place] [address] Jose M Sosa MD Reschedule from Last 3 Months Immunizations Immunization Administration Dates Next Due Hepatitis A (Havrix [address]) 06/24/2018 Influenza Adult (Generic) 01/24/2022,04/2021,02/10/2020,2018,06/11/2018,04/12/2016 GIL (SHEELA & Ixchelsis) COVID-19 AD26 VACCINE 0.5 ML IM SUSP 08/03/2020 Tdap (Generic) 06/24/2018 Family History Medical History Relation Comments Arthritis Brother Asthma Brother Asthma Daughter Cancer Father Melanoma Arthritis Mother Cancer Mother Basal cell carci noma Relation Status Comments Brother Daughter Father Mother Social History Tobacco Use Types Packs/Day Years Used Date Smoking Tobacco: Former Cigarettes 2 4 1 06/26/1982 - 04/25/1987 Smokeless Tobacco: Never Tobacco Cessation:Counseling Given: Yes Alcohol Use Standard Drinks/Week Comments Not Currently 0 (1 standard drink = 0.6 oz pur e alcohol) Havent drank im 39 years PHQ-2 Answer Date Recorded Patient Health Questionnaire-2 Score 0 09/13/2022 Comments No Sex and Gender Information Value Date Recorded Sex Assigned at Not on file Legal Sex Female 7:42 PM CDT Gender Identity Not on file Sexual Orientation Not on file Last Filed Vital Signs Vital Sign Reading Time Taken Comments Blood Pressure 128/88 04/09/2024 10:52 AM PIANO AND ORGAN REFINISHER Pulse 72 04/09/2024 10:52 AM PIANO AND ORGAN REFINISHER Temperature 36.5 C (97.7 F) 04/09/2024 10:52 AM PIANO AND ORGAN REFINISHER Respiratory Rate 18 04/09/2024 10:52 AM PIANO AND ORGAN REFINISHER Oxygen Saturation 99% 04/09/2024 10:52 AM PIANO AND ORGAN REFINISHER RA Inhaled Oxygen Concentration - - Weight 69.4 kg (153 lb) 04/09/2024 10:52 AM PIANO AND ORGAN REFINISHER Height 172.7 cm (5' 8 ) 04/09/2024 10:52 AM PIANO AND ORGAN REFINISHER Body Mass Index 23.26 04/09/2024 10:52 AM PIANO AND ORGAN REFINISHER Plan of Treatment Health Maintenance Due Date Last Done Comments Hepatitis C 1974 Pneumococcal Vaccine: 50+ Years (1 of 2 - PCV) 1975 Zoster Vaccines (1 of 2) 2006 RSV Immunization or 60+ Years (1 - Risk 60-74 years 1-dose series) 2016 Annual Medicare Wellness Visit 2021 Dexa Scan (General) 2021 COVID-19 Vaccine (3 - 2023-2 5 season) 2024 03/23/2021, 08/03/2020 PHQ-2 (Physician [place]) 05/26/2024 09/13/2022 Mammogram Screening 06/12/2025 06/12/2023, 08/04/2017 DTaP, Tdap and Td Vaccines ( 2 - Td or Tdap) 06/24/2028 06/24/2018 Colorectal Cancer Screening Colonoscopy (10 Years) 02/21/2032 02/20/2022, 02/20/2022 Meningococcal B Vaccine Aged Out No l onger eligible based on patient's age to complete this topic Meningococcal Vaccine Aged Out No juan jose mari eligible based on patient's age to complete this topic RSV Immunizations Under 20 Months Aged Out No longer eligible b ased on patient's age to complete this topic Procedures Procedure Name Priority Date/Time Associated Diagnosis Comments COLONOSCOPY Routine 02/20/2022 8:42 AM CDT from Last 3 Months or Most Recently Relevant to Health Maintenance Insurance [facility] [employer] MEDICARE Care Teams Instructor Kindergarten Relationship Specialty Start Date End Date Sarath Boston MD [address] [place] [address] PCP - General FAMILY PRACTICE 12/25/20
--- OUTSIDE RECORDS SUMMARY | 2024-09-14 18:30 | XMS_ITS | Continuity of Care Document ---
Author Name [facility] Organization [facility] Care Team Providers Care Insecticide Sprayer Name Role Phone [facility] Unavailable Unavailable Medications Combined list of outpatient medications from Department of Defense and Veterans Affairs facilities.Medications provided include 1) outpatient medications from the last 15 months, and 2) patient-reported medications. Medication Details Route Status Patient Instructions Prescription Expires Prescription Number Last Dispense Date Ordering Provider Order Date Order Qty Source CELECOXIB (celecoxib) , 200 MG, CAPSULE, ORAL, AUROBINDO PHARM, 100 ea. BOTTLE Cancele d [id number] : 2023 0 Pharmac y Data Transac tion Service Facilit y CELECOXIB (celecoxib) , 200 MG, CAPSULE, ORAL, AUROBINDO PHARM, 100 ea. BOTTLE Active [id number] 4 2023 14 Pharmac y Data Transac tion Service Facilit y DUPIXENT PEN (dupilumab) , 300 MG/2ML, PEN INJCTR, SUBCUT, SANOFI-AVEN TIS, 2 ml SYRINGE Cancele d [id number] : 2023 0 Pharmac y Data Transac tion Service Facilit y DUPIXENT PEN (dupilumab) , 300 MG/2ML, PEN INJCTR, SUBCUT, SANOFI-AVEN TIS, 2 ml SYRINGE Active [id number] 2023 8 Pharmac y Data Transac tion Service Facilit y DUPIXENT PEN (dupilumab) , 300 MG/2ML, PEN INJCTR, SUBCUT, SANOFI-AVEN TIS, 2 ml SYRINGE Active [id number] 2023 8 Pharmac y Data Transac tion Service Facilit y HYDROCODONE -ACETAMINOP HEN (HYDROCODON E/ACETAMINO PHEN), 5MG-325MG, TABLET, ORAL, MALLINCKROD T PH, 500 ea. BOTTLE Cancele d [id number] : 2023 0 Pharmac y Data Transac tion Service Facilit y HYDROCODONE -ACETAMINOP HEN (HYDROCODON E/ACETAMINO PHEN), 5MG-325MG, TABLET, ORAL, MALLINCKROD T PH, 500 ea. BOTTLE Active [id number] 4 2023 20 Pharmac y Data Transac tion Service Facilit y HYDROCODONE -ACETAMINOP HEN (HYDROCODON E/ACETAMINO PHEN), 7.5-325MG, TABLET, ORAL, MALLINCKROD T PH, 500 ea. BOTTLE Active [id number] 4 2023 90 Pharmac y Data Transac tion Service Facilit y HYDROCODONE -ACETAMINOP HEN (HYDROCODON E/ACETAMINO PHEN), 7.5-325MG, TABLET, ORAL, MALLINCKROD T PH, 500 ea. BOTTLE Active [id number] 4 2023 90 Pharmac y Data Transac tion Service Facilit y HYDROCODONE -ACETAMINOP HEN (HYDROCODON E/ACETAMINO PHEN), 7.5-325MG, TABLET, ORAL, MALLINCKROD T PH, 500 ea. BOTTLE Active [id number] 4 2023 90 Pharmac y Data Transac tion Service Facilit y HYDROCODONE -ACETAMINOP HEN (HYDROCODON E/ACETAMINO PHEN), 7.5-325MG, TABLET, ORAL, MALLINCKROD T PH, 500 ea. BOTTLE Active [id number] 4 2023 90 Pharmac y Data Transac tion Service Facilit y HYDROCODONE -ACETAMINOP HEN (HYDROCODON E/ACETAMINO PHEN), 7.5-325MG, TABLET, ORAL, MALLINCKROD T PH, 500 ea. BOTTLE Active [id number] 2023 90 Pharmac y Data Transac tion Service Facilit y HYDROXYZINE HCL (hydroxyzin e HCl), 25 MG, TABLET, ORAL, RISING PHARM, 500 ea. BOTTLE Active [id number] 4 2023 30 Pharmac y Data Transac tion Service Facilit y METHYLPREDN ISOLONE (methylpred nisolone), 4 MG, TAB DS PK, ORAL, [employer]Skunk, 21 ea. DOSE-PACK Active [id number] 4 2023 21 Pharmac y Data Transac tion Service Facilit y PREGABALIN (pregabalin ), 200 MG, CAPSULE, ORAL, [employer], 90 ea. BOTTLE Cancele d [id number] : 2023 0 Pharmac y Data Transac tion Service Facilit y PREGABALIN (pregabalin ), 200 MG, CAPSULE, ORAL, EXELAN PHARMACE, 90 ea. BOTTLE Active [id number] 4 2023 120 Pharmac y Data Transac tion Service Facilit y PREGABALIN (pregabalin ), 200 MG, CAPSULE, ORAL, NOVADOZ PHARMAC, 90 ea. BOTTLE Active [id number] 4 2023 120 Pharmac y Data Transac tion Service Facilit y SCOPOLAMINE (scopolamin e), 1 MG/3 DAY, PATCH TD 3, TRANSDERM, INGENUS PHARMAC, 4 ea. BOX Active [id number] 4 2023 4 Pharmac y Data Transac tion Service Facilit y Immunizations Combined list of available immunizations from the Department of Defense and Veterans Affairs facilities. Immunization Series Date Given Administered By Site Reaction Lot Number CVX Code Drug Pasteurizing Machine Operator Status Comments Source COVID-19, mRNA, LNP-S, PF, 100 mcg or 50 mcg dose 2021 Method CRM, [employer] (MOD) Not Given COVID-19, mRNA, LNP-S, PF, 100 mcg or 50 mcg dose DoD zoster recombinant 2021 AMIRAH, () Not Given zoster recombina nt DoD COVID-19, mRNA, LNP-S, PF, 100 mcg or 50 mcg dose 2020 Method CRM, [employer] (MOD) Not Given COVID-19, mRNA, LNP-S, PF, 100 mcg or 50 mcg dose DoD Social History Combined list of available smoking, tobacco, and other social history from Department of Defense and Veterans Affairs facilities. Social History Type Response Date Comment [facility] e This section is an empty social history section. DoD
--- OUTSIDE RECORDS SUMMARY | 2024-09-14 18:31 | XMS_ITS | Encounter Summary ---
Author Organization [facility] Address [address] [address] Care Team Providers Care Data Entry Email Processor Name Role Phone Unavailable Primary Care Provider Unavailabl e Encounter Details Date Type Department Care Team (Late st Contact Info) Description 07/30/2019 Lab Requisition [facility] [address] [place] [id number] Eliazar Harris MD [address] [address] Social History Tobacco Use Types Packs/Day Years Used Date Smoking Tobacco: Never Assessed Comments Unknown Sex and Gender Information Value Date Recorded Sex Assigned at Not on file Legal Sex Female 10:43 AM PUBLICITY CONSULTANT Gender Identity Not on file Sexual Orientation Not on file documented as of this encounter Plan of Treatment Not on file documented as of this encounter Procedures Procedure Name Priority Date/Time Associated Diagnosis Comments DERMATOPATHOLOGY Routine 07/28/2019 12:0 0 AM PUBLICITY CONSULTANT documented in this encounter Results * DERMATOPATHOLOGY (07/28/2019 12:00 AM PUBLICITY CONSULTANT) Case Report Dermatopathology Report Case: [id number] Authorizing Provider: Eliazar Harris MD Collected: 07/28/2019 12:00 AM Ordering Location: [facility] Received: 07/30/2019 06:32 AM Pathologist: Ella Watts MD Specimen: Skin, right calf 0 1:54 PM CDT DERMATOPATHOLOGY LABORATORY Final Diagnosis Specimen A. SKIN, right calf: LICHEN SIMPLEX CHRONICUS (L28.0) STASIS DERMATITIS (L30.8) 0 1:54 PM CDT DERMATOPATHOLOGY LABORATORY Clinical History LP vs other. Path# [id number] 0 1:54 PM CDT DERMATOPATHOLOGY LABORATORY Gross Description Specimen A: Received is one formalin filled container labeled with the patient's name and designated right calf. The specimen consists of a shave biopsy measuring 10x6x1 mm. Jar 0. 0 1:54 PM CDT DERMATOPATHOLOGY LABORATORY Microscopic Description Specimen A. SKIN, right calf: Sections show acanthosis, hypergranulosis, and hyperkeratosis. The papillary dermis is fibrotic. There is focal spongiosis. The dermis shows a sparse, perivascular lymphocytic infiltrate surrounding dilated, thick-walled vessels, which are increased in number. 0 1:54 PM CDT DERMATOPATHOLOGY LABORATORY Disclaimer An external and internal positive and negative controls are appropriate for the histochemical, immunohistochemical and immunofluorescence stain(s) in this case (if any), except where stated explicitly. The performance characteristics of the stain(s) cited in this report were developed and its performance characteristic determined by the Dermatopathology Laboratory at [facility], directed by Dr. Ginny Cortés. These tests need not be, and therefore are not, approved by the [place] Food and Drug Administration. The tests are used for clinical purposes. Billing Codes Specimen Charges Stain Charges 80415 1 0 1:54 PM CDT DERMATOPATHOLOGY LABORATORY Embedded Images 0 1:54 PM CDT DERMATOPATHOLOGY LABORATORY Pathology/Cytolog y TISSUE SPECIMEN FROM SKIN / Unknown 07/28/2019 07/30/2019 6:32 AM PUBLICITY CONSULTANT us Eliazar Harris MD LAB - PATHOLOGY/CYTOLOGY ORDER JOYCE Final Result DERMATOPATHOLOGY LABORATORY [facility] - Department of Dermatology [address] [place] [address], [address] [place] [address], [facility] [phone] documented in this encounter Visit Diagnoses Not on filedocumented in this encounter
--- OUTSIDE RECORDS SUMMARY | 2024-09-14 18:31 | XMS_ITS | Encounter Summary ---
Author Organization [facility] Address [address] [place] [address] Care Team Providers Care Clinical Review Nurse Name Role Phone Sarath Boston MD Primary Care Provider [phone] Encounter Details Date Type Department Care Team (Late st Contact Info) Description 11/20/2022 MyChart Message Enc [facility] [address] [place], [place] [id number] [place], [facility] Provider Air Quality Message Social History Tobacco Use Types Packs/Day Years Used Date Smoking Tobacco: Former Cigarettes 2 4 1 6 - 1989 Smokeless Tobacco: Never Alcohol Use Standard Drinks/Week Comments Not Currently 0 (1 standard drink = 0.6 oz pur e alcohol) PHQ-2 Answer Date Recorded Patient Health Questionnaire-2 Score 0 09/13/2022 Comments No Sex and Gender Information Value Date Recorded Sex Assigned at Not on file Legal Sex Female 7:42 PM CDT Gender Identity Not on file Sexual Orientation Not on file documented as of this encounter Plan of Treatment Not on file documented as of this encounter Visit Diagnoses Not on filedocumented in this encounter Additional Health Concerns Assessment Noted Time PHQ-9 Depression Total Score: 0 04/03/20 21 8:37 AM MICROBIOLOGY TECHNOLOGIST documented as of this encounter Care Teams Clinical Review Nurse Relationship Specialty Start Date End Date Sarath Boston MD [address] [place] [id number] PCP - General FAMILY PRACTICE 12/25/20 documented as of this encounter
--- OUTSIDE RECORDS SUMMARY | 2024-09-14 18:31 | XMS_ITS | Encounter Summary ---
Author Organization [facility] Address 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
--- OUTSIDE RECORDS SUMMARY | 2024-09-14 18:31 | XMS_ITS | Encounter Summary ---
Author Organization [facility] Address [address] [place] [address] Care Team Providers Care Holistic Pulser Name Role Phone Unavailable Primary Care Provider Unavailabl e Encounter Details Date Type Department Care Team (Latest Contact Info) Description 10/31/2008 Outpatient Historical [facility] NicholsMichel MD [address] [place] [address] [place] [phone] Uncomplicated Varicose Veins Social History Tobacco Use Types Packs/Day Years Used Date Smoking Tobacco: Never Assessed Comments Unknown Sex and Gender Information Value Date Recorded Sex Assigned at Not on file Legal Sex Female 5:43 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
--- OUTSIDE RECORDS SUMMARY | 2024-09-14 18:31 | XMS_ITS | Encounter Summary ---
Author Organization [facility] Address [address] [place] [address] Care Team Providers Care Packing And Shipping Clerk Name Role Phone Unavailable Primary Care Provider Unavailabl e Encounter Details Date Type Department Care Team (Latest Contact Info) Description 09/27/2008 Outpatient Historical [facility] NicholsMichel MD [address] [place] [address] [place] [phone] Uncomplicated Varicose Veins Social History Tobacco Use Types Packs/Day Years Used Date Smoking Tobacco: Never Assessed Comments Unknown Sex and Gender Information Value Date Recorded Sex Assigned at Not on file Legal Sex Female 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
--- OUTSIDE RECORDS SUMMARY | 2024-09-14 18:31 | XMS_ITS | Data Portability ---
Author Organization [employer], [facility] Address [address] [place] [address] Assessment Encounter Date Assessment Date Assessment LastModified by Organization Details LastModified Time 08/19/2022 08/19/2022 Incidental radiological finding of fibroid Calcified appearance on US Clinically asymptomatic Unable to do a BME today- recent hip surgery. Pathophysiology of fibroids and their benign nature explained. Instructed to return if s/s develop. Otherwise no surgical intervention necessary. [email or web address] Not available 10/29/2022 22:28:13 Plan of Treatment Reminders Order Date Submit Date Provider Last Modified By Organization Details Last Modified Time Details Appointments None recorde d. Lab None recorde d. Referral None recorde d. Procedures None recorde d. Surgeries None recorde d. Imaging US, transva ginal 2022 023 [email or web address] Not available 11:47:32 Medication Orders None recorde d. Patient TargetsNo targets recorded. Patient InstructionsNo instructions recorded. Reason for Referral None Reported. Results Created Date Observation Date Name Description Value Unit Range Abnormal Flag Note LastModifiedBy Organization Detail LastModifiedTime 07/31/1907/29/2022 US, trans vagin al No observ ation record ed. [email or web address] [address], [place], [address], 11/27/2022 01:22:36 Result Notes None recorded. Procedures Surgical History Date Name Laterality Status Provider Name and Address Organization Details Recorded Time Most Recent Bone Density completed Kaylin Reich [facility] 07/29/2022 09:52:14 replacement of bilateral hip joints completed [facility] [employer] 06/25/2022 12:25:10 Imaging Results Imaging Date Name Status LastModified by Organization Details LastModified Time 07/29/2022 US, transvaginal completed [email or web address] [address], [place], [address], 11/27/2022 01:22:36 Procedure Notes None recorded. Medical Equipment None Reported. Allergies Allergen ID Allergen Name Allergen Category Reaction Reaction Severity Criticality Documentation Date Start Date Code Code System Note Provider Name and Address Organization Details Recorded Time 135274 Product containin g penicilli n (product) medicatio n Not available Not available Not available 06/25/2022 11379 8001 SNOMED Not Available Not Available Not Available 493849 morphine medicatio n Not available Not available Not available 06/25/2022 7052 RxNorm Not Available Not Available Not Available Medications Name Sig Start Date Stop Date Status Note LastModified by Organization Details LastModified Time cyclobenzap rine 10 mg tablet active Not Available Not Available Not Available azithromyci n 250 mg tablet take 2 tablets by mouth TODAY then take 1 tablet DAILY FOR 4 DAYS 06/25 completed Not Available Not Available Not Available hydrocodone 5 mg-acetamin ophen 325 mg tablet TAKE 1 TO 2 TABLETS BY MOUTH EVERY 4 HOURS NEEDED FOR POST OPERATIVE PAIN 08/19 completed Not Available Not Available Not Available fluconazole 200 mg tablet active Not Available Not Available Not Available meloxicam 15 mg tablet active Not Available Not Available Not Available alendronate 70 mg tablet active Not Available Not Available Not Available clobetasol 0.05 % topical cream 06/25 completed Not Available Not Available Not Available tramadol 50 mg tablet TAKE 1 TABLET BY MOUTH EVERY 6 HOURS NEEDED active Not Available Not Available No t Available propranolol 40 mg tablet active Not Available Not Available Not Available meclizine 25 mg tablet TAKE 1 TABLET BY MOUTH THREE TIMES DAILY NEEDED FOR DIZZINESS active Not Available Not Available No t Available doxycycline monohydrate 100 mg capsule 06/25 completed Not Available Not Available Not Available hydrocodone 7.5 mg-acetamin ophen 325 mg tablet active Not Available Not Available No t Available pantoprazol e 40 mg tablet,taylor yed release active Not Available Not Available Not Available clobetasol 0.05 % topical ointment 06/25 completed Not Available Not Available Not Available ondansetron 4 mg disintegrat ing tablet active Not Available Not Available N ot Available fluticasone propionate 50 mcg/actuati on nasal spray,suspe nsion active Not Available Not Available Not Available pregabalin 200 mg capsule active Not Available Not Available Not Available Dupixent 300 mg/2 mL subcutaneou s pen injector active Not Available Not Available Not Available Trelegy Ellipta 200 mcg-62.5 mcg-25 mcg powder for inhalation active Not Available Not Available N ot Available Vitals Date Recorded Body weight Body temperature Body mass index (BMI) Body height Systolic blood pressure Diastolic blood pressure Provider Name and Address Organization Details Last Updated DateTime 3 80143.9 8 g 97.2 [degF] 22.7 kg/m2 172.72 cm 122 mm[Hg] 88 mm[Hg] Nancy Dennismarcio [employer] [facility] 3 12:27:00 Date Recorded Body height Provider Name an d Address Organization Details Last Updated DateTime 08/01/2022 172.72 [facility] [employer] [facility] 08/01/2022 11:38:19 Date Recorded Body height Body mass index (BMI) Body weight Body temperature Systolic blood pressure Diastolic blood pressure Provider Name and Address Organization Details Last Updated DateTime 3 172.72 cm 22 kg/m2 25813.1 8 g 97.6 [degF] 120 mm[Hg] 68 mm[Hg] [facility] [employer] IV 3 12:47:17 Social History Question Answer Notes LastModified by Organizat ion Details LastModified Time Tobacco Smoking Status Former Smoker Nancy Dennismarcio [place], [place] [employer] [facility] 06/25/2022 12:24:38 What Is Your Level Of Alcohol Consumption? None [email or web address] Information not available 06/25/2022 Are You Blind Or Do You Have Difficulty Seeing? No [email or web address] Information not available 06/25/2022 Are You Currently Employed? No [email or web address] Information not available 06/25/2022 Are You Deaf Or Do You Have Serious Difficulty Hearing? No Information not available 06/25/2022 What Type Of Diet Are You Following? REGULAR [email or web address] Information not available 06/25/2022 Do You Or Have You Ever Used E-cigarettes Or Vape? Never Used Electronic Cigarettes [email or web address] Information not available 07/29/2022 What Is The Highest Grade Or Level Of School You Have Completed Or The Highest Degree You Have Received? KP83049-2 [email or web address] Information not available 06/25/2022 When Did You Quit Smoking? 16+yearssincel astcigarette [email or web address] Information not available 06/25/2022 How Many Children Do You Have? 3 [email or web address] Information not available 06/25/2022 What Is Your Relationship Status? Information not available 06/25/2022 Are You Sexually Active? No [email or web address] Information not available 06/25/2022 Do You Use Any Illicit Or Recreational Drugs? No Information not available 06/25/2022 Do You Or Have You Ever Used Any Other Forms Of Tobacco Or Nicotine? No [email or web address] Information not available 06/25/2022 Sex: Unknown Functional Status Question Answer Note LastModified by Organization D etails LastModified Time What is your exercise level? None [email or web address] Information not available 06/25/2022 Mental Status None recorded. Family History Relationship Description Onset Age of this Age Resolved Age Notes LastModified by Organization Details LastModified Time Father No current problems or disability [email or web address] Not available 06/25 12:24:02 Mother No current problems or disability [email or web address] Not available 06/25 12:24:02 Medical History No medical history recorded. Gynecological History Statement/Question Response If Post Menopausal, Age at Menopause 56 Date of Last Pap Smear Current Control Method Menopause Age at Menarche 16 Most Recent Bone Density 11/23/2020 Obstetrics History GPAL:G 3 P 3 0 0 3 Type Value Full Term 3 Living 3 Total 3 Past Encounters Encounter ID Performer Location Encounter Start Date Encounter Closed Date Diagnosis/Indication Diagnosis SNOMED-CT Code Diagnosis ICD10 Code Diagnosis Note [id number] MAGALY PRECIADO [facility] [address] [facility] [address] 06/25/2022 12:14:37 07/04/2022 15:00:19 [id number] DEX MA MD [facility] [address] [place] [address] 07/29/2022 09:42:44 07/30/2022 14:55:05 Pelvic mass 09199785 R19.00 [id number] DEX MA MD [facility] [address] [place] [address] 08/19/2022 12:13:05 08/20/2022 14:57:08 Uterine leiomyoma 45648374 D25.9 Health Concerns Section Related Observation LastModified by Organization Detai ls LastModified Time None Recorded Concern Status LastModified by Organization Details LastModified Time None Recorded Advance Directives Directive None Recorded Payers Encounter Date Sequence Insurance Name Policy Number Policy Wells Covered Member ID Wells Member ID Guarantor Name 06/25/2022 1 [place] Mona L Posmanick [id number] Mona Posmanick 06/25/2022 2 [employer]PS - FOR LIFE (MEDICARE SUPPLEMENT) Mona Posmanick [id number] Mona Posmanick 07/29/2022 1 [place] Mona L Posmanick [id number] Mona Posmanick 07/29/2022 2 [employer]PS - FOR LIFE (MEDICARE SUPPLEMENT) Mona Posmanick [id number] Mona Posmanick 08/19/2022 1 [place] Mona L Posmanick [id number] Mona Posmanick 08/19/2022 2 [employer]PS - FOR LIFE (MEDICARE SUPPLEMENT) Mona Posmanick [id number] Mona Posmanick Notes Date Note Type Note Provider Name and Address Organization Details Recorded Time 06/25/2022 text/html Pt is here today because her Doctor told her that they'd seen a mass and she needed to see her OBGYN. This was several years ago.Emelia did not see this patient due to Medicare insurance- she is coming back to see a MD with [facility]. LYNDON PRECIADO- [address] [facility], [place], [address], [facility] IV 06/27/2022 23:14:59 07/29/2022 text/html 08/2020 CT pelvis : 1. Postoperative left hip arthroplasty. Small amounts of soft tissue gas are noted consistent with the recent procedure. 2. 8 cm uterine fibroid. 3. 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 4. Small amount of nonspecific fluid in the pelvic cul-de-sac. 5. Otherwise, unremarkable CT of the pelvis Here for US onlyNot seen by provider DEX WALLACE MD [facility], [place], [address], [employer] [facility] 10/13/2022 01:04:07 08/19/2022 text/html Ms. Dunn is a 67 year old P3L3 postmenopausal lady- presents for evaluation of fibroid. Reports being told she had a pelvic mass in the pastDenies any pelvic pain or Vb.No bladder or bowel s/s 08/2020 CT pelvis : 1. Postoperative left hip arthroplasty. Small amounts of soft tissue gas are noted consistent with the recent procedure. 2. 8 cm uterine fibroid. 3. 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 4. Small amount of nonspecific fluid in the pelvic cul-de-sac. 5. Otherwise, unremarkable CT of the pelvis Pt had US done in office 07/29/22US report: Uterus obscured by calcifications- PROBABLE CALCIFIED FIBROID MEASURES 6.18 X 4.05 X 5.06 cm. DEX WALLACE MD [facility], [place], [address], [employer] [facility] 10/29/2022 22:28:53 OBGyn Episode No OBEpisode recorded.
--- OUTSIDE RECORDS SUMMARY | 2024-09-14 18:31 | XMS_ITS | Clinical Summary ---
Author Organization [facility] Address [address] [place] [address] Care Team Providers Care Insulation Packer Name Role Phone Unavailable Primary Care Provider Unavailabl e Source Comments [facility] [email or web address],non-owned Affiliates and Associated Physician Practices is amultiple site organization consisting of ambulatory clinics and hospital sitesin [place], [place], [place]. This disclosure is being madepursuant to the Care Everywhere program and may not contain all information available regarding this patient. 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 Gender Identity Not on file Sexual Orientation Not on file Plan of Treatment Health Maintenance Due Date Last Done Comments BONE DENSITY TESTING 1956 COLOGUARD (AGES 45-75) - COL ON CA SCREENING 1956 COLON MONITORING 1956 COLONOSCOPY - COLON CA SCREENING 1956 CT COLONOGRAPHY - COLON CA SCREENING 1956 Colorectal Cancer Screening 1956 FIT - COLON CA SCREENING 1956 FLEX SIG - COLON CA SCREENING 1956 LIPID TESTING 1956 MAMMOGRAM 1956 HEPATITIS C SCREENING 05/08/1974 DTAP/TDAP/TD VACCINES (1 - Tdap) 1975 PNEUMOCOCCAL VACCINE 50+ (1 of 1 - PCV) 2006 ZOSTER VACCINE (1 of 2) 2006 COVID-19 VACCINE ( - 2023-2 5 season) 2024 DEPRESSION SCREENING 05/26/2024 INFLUENZA VACCINE (Season Ended) 2025 Respiratory Syncytial Virus (RSV) Vaccine Pt: or over 60 yrs (1 - 1-dose 75+ series) 2031 HEPATITIS B VACCINE Aged Out No longe r eligible based on patient's age to complete this topic HIB VACCINE Aged Out No longer eligi ble based on patient's age to complete this topic HPV VACCINE Aged Out No longer eligi ble based on patient's age to complete this topic MENINGOCOCCAL (Group B) VACC INE SHARED DECISION-MAKING Aged Out No longer eligibl e based on patient's age to complete this topic MENINGOCOCCAL GROUPS A/C/Y/W VACCINE Aged Out No longer eligible b ased on patient's age to complete this topic Insurance [facility]
--- OUTSIDE RECORDS SUMMARY | 2024-09-14 18:31 | XMS_ITS | Clinical Summary ---
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
--- OUTSIDE RECORDS SUMMARY | 2024-09-14 18:31 | XMS_ITS | Data Portability ---
Author Organization [facility] SpecifiedBy, [facility] Address [address] [place] [id number] Assessment No assessment recorded. Plan of Treatment Reminders Order Date Submit Date Provider Last Modified By Organization Details Last Modified Time Details Appointments None recorded. Lab None recorded. Referral physical therapist referral 2019 020 [email or web address] [facility], [address] [facility], [place], [address], 1 09:44:20 physical therapist referral 2019 020 [email or web address] [facility], [address] [facility], [place], [address], 0 09:21:45 Procedures None recorded. Surgeries None recorded. Imaging XR, hip, unilateral 2020 021 In-House Results, For Internal Use Only, Do Not Delete/merge, [id number] 1 21:32:06 XR, hip, unilateral - room 11 2019 020 [email or web address] Not available 0 08:57:51 XR, lumbar spine, 2 view - room 11 2019 020 [email or web address] Not available 0 08:57:51 Medication Orders Robaxin-750 750 mg tablet 2019 020 [email or web address] [facility], [address] [place] [address], [address], 0 09:21:45 Patient TargetsNo targets recorded. Patient InstructionsNo instructions recorded. Reason for Referral Physical Therapist Referral for Degeneration of lumbar intervertebral disc Referring Physician: Mya Brasher Implementation Project Coordinator, Encounter Date: 05/02/2020 Physical Therapist Referral for Osteoarthritis of left hip joint Referring Physician: Mya Brasher Implementation Project Coordinator, Encounter Date: 05/02/2020 Results Created Date Observation Date Name Description Value Unit Range Abnormal Flag Note LastModifiedBy Organization Detail LastModifiedTime 06/28/19 21 06/26/2020 physi zuleika thera py* No observ ation record ed. BARCODE Not Available 2020 16:18:12 Result Notes None recorded. Problems No Known Problems Procedures Surgical History Date Name Laterality Status Provider Name and Address Organization Details Recorded Time 1 Generic Procedure completed MANJIT CONTRERAS [address], [address], [employer] 07/27/2020 16:12:58 0 Generic Procedure completed MANJIT CONTRERAS [address], [place], [address], [employer] 12/03/2019 17:23:14 Imaging Results Imaging Date Name Status LastModified by Organiz ation Details LastModified Time 06/26/2020 physical therapy* completed BARCODE Information not available 06/28/2020 16:18:12 Procedure Notes None recorded. Medical Equipment None Reported. Allergies Allergen ID Allergen Name Allergen Category Reaction Reaction Severity Criticality Documentation Date Start Date Code Code System Note Provider Name and Address Organization Details Recorded Time 11758 penicilli n V potassium medicatio n rash moderate Not available 11/29/2019 5 RxNorm Sariah Fletcher [facility], [employer] 0 15:00:16 Medications Name Sig Start Date Stop Date Status Note LastModified by Organization Details LastModified Time cyclobenzapr ine 10 mg tablet active Not Available Not Available Not Available bupropion HCl SR 150 mg tablet,12 hr sustained-re lease active Not Available Not Available Not Available prednisone 10 mg tablet active Not Available Not Available Not Available doxycycline hyclate 100 mg capsule active Not Available Not Available N ot Available hydrocodone 5 mg-acetamino phen 325 mg tablet active Not Available Not Available Not Available meloxicam 15 mg tablet active Not Available Not Available No t Available ondansetron HCl 4 mg tablet TAKE 1 TABLET BY MOUTH EVERY 6 HOURS DIRECTED active Not Available Not Available No t Available prednisone 20 mg tablet active Not Available Not Available Not Available alendronate 70 mg tablet active Not Available Not Available Not Available clobetasol 0.05 % topical cream active Not Available Not Available Not Available doxepin 10 mg capsule active Not Available Not Available N ot Available tramadol 50 mg tablet Take 1 tablet every 6 hours by oral route. active Not Available Not Available Not Available methocarbamo l 750 mg tablet Take 1 tablet 3 times a day by oral route as needed for 7 days. active Not Available Not Available No t Available doxycycline monohydrate 100 mg capsule active Not Available Not Available Not Available hydrocodone 7.5 mg-acetamino phen 325 mg tablet active Not Available Not Available Not Available cephalexin 500 mg capsule active Not Available Not Available Not Available pantoprazole 40 mg tablet,delay ed release active Not Available Not Available N ot Available mupirocin 2 % topical ointment active Not Available Not Available Not Available diazepam 10 mg tablet Take 1 tablet(s) 30 mins PRIOR to appointment PRN and repeat as directed by physician. active Not Available Not Available N ot Available levofloxacin 500 mg tablet active Not Available Not Available Not Available methylpredni solone 4 mg tablets in a dose pack FOLLOW PACKAGE DIRECTIONS active Not Available Not Available N ot Available albuterol sulfate HFA 90 mcg/actuatio n aerosol inhaler INHALE 2 PUFFS BY MOUTH EVERY 4 HOURS active Not Available Not Available No t Available fluticasone propionate 50 mcg/actuatio n nasal spray,suspen davis active Not Available Not Available Not Available diazepam 5 mg tablet Take 1 tablet every day by oral route at bedtime. active Not Available Not Available No t Available metocloprami de 10 mg tablet active Not Available Not Available Not Available bupropion HCl XL 150 mg 24 hr tablet, extended release active Not Available Not Available Not Available pregabalin 200 mg capsule active Not Available Not Available Not Available Nucynta 50 mg tablet Take 1 tablet every 6 hours by oral route. active Not Available Not Available Not Available Nucynta ER 50 mg tablet,exten ded release active Not Available Not Available Not Available Trelegy Ellipta 100 mcg-62.5 mcg-25 mcg powder for inhalation active Not Available Not Available N ot Available Vitals Date Recorded Body height Body mass index (BMI) Body weight Heart rate Systolic blood pressure Diastolic blood pressure Provider Name and Address Organization Details Last Updated DateTime 0 172.72 cm 22.8 kg/m2 28505.8 6 g 103 /min 120 mm[Hg] 82 mm[Hg] Sariah Fletcher [facility] [employer] [facility], [employer] 0 14:58:04 Date Recorded Body height Body mass index (BMI) Body weight Provider Name and Address Organization Details Last Updated DateTime 05/02/2020 172.72 cm 22.8 kg/m2 49941.86 g Nelly Agustin [facility] [employer] [facility], [employer] 05/02/2020 12:08:03 Date Recorded Body height Body mass index (BMI) Body weight Heart rate Body temperature Systolic blood pressure Diastolic blood pressure Provider Name and Address Organization Details Last Updated DateTime 1 172.72 cm 22.8 kg/m2 24396.8 6 g 103 /min 97.9 [degF] 138 mm[Hg] 91 mm[Hg] Renay Ramos [facility] 1 15:45:39 Social History Question Answer Notes LastModified by Organization D etails LastModified Time What Is Your Level Of Alcohol Consumption? 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 No Information not available 11/29/2019 Sex: Unknown Functional Status None recorded. Mental Status None recorded. Family History Relationship Description Onset Age of this Age Resolved Age Notes LastModified by Organization Details LastModified Time Unspecified Relation Family history of malignant neoplasm Not available 10/2019 15:00:50 Medical History Condition Response Other Cancer N HIV or AIDS N Coronary Artery Disease N Gout N Kidney Stones N Hyperthyroidism N Breast Cancer N Hernia N Head Trauma/Injury N Lung Cancer N Hypothyroidism N Lung Disease N Blood Clots N COPD N Depression N Pacemaker N Anxiety Disorder N Arthritis Y Kidney Cancer N Cancer N Stroke N Neck Injury N Leg or Foot Ulcers N High Cholesterol N Liver Disease N Rheumatoid Arthritis N Headaches N Fibromyalgia N Kidney Disease N Heart Problems N Prostate Cancer N Migraines N Thyroid Problems N Anemia N Multiple Sclerosis N [place]endon Tear N Ulcers N Heart Attack (ID) N Diabetes N Bleeding Disorder N Seizures/Epilepsy N Tuberculosis N Urinary Tract Infection N Back Problems N Diverticulitis N Asthma N Lupus N Peripheral Vascular Disease N Sleep Disorder N GERD/Reflux N Hepatitis N Aneurysm N Thyroid Cancer N Heart Disease N Pulmonary Embolism N Hypertension N Osteoporosis N Gynecological HistoryNo gynecological history recorded. Obstetrics History GPAL:G 0 P 0 0 0 0 Past Encounters Encounter ID Performer Location Encounter Start Date Encounter Closed Date Diagnosis/Indication Diagnosis SNOMED-CT Code Diagnosis ICD10 Code Diagnosis Note [id number] MANJIT CONTRERAS [facility] [address] [facility] [place] [address] 11/29/2019 13:57:50 12/09/2019 15:13:41 Hip pain 18083137 M25.552 Osteoarthr itis of left hip joint [id number] 49917 M16.12 At today's office visit the patient's diagnosis and treatment options were discussed in great detail. The patient was provided with informatio n to make an informativ e decision on the next steps for treatment. The patient has tried several conservati ve measures including but not limited to PT, rest, ice, and NSAIDs with no beneficial relief. Given the imaging results and the duration of the patient's symptoms I would recommend BMAC with fat as they are an excellent candidate. We discussed the need for PRP at [facility] the 12-week butch. The risk and benefits were discussed with the patient as well as functional and pain improvemen t outcomes. The procedure was discussed in detail as well as the recovery period. We discussed screening with R3 and its importance . We also discussed obtaining labs to ensure the patient is optimized for maximal results. I also discussed other conservati ve options. The patients case and treatment plan were reviewed in detail with Dr. Lundy. PLAN: [facility]/fat to left hip as well as the possibly the left SI joint. 2600 with pronox an extra 250 All questions were answered, the patient understood the treatment plan.Great er than 45 minutes face-to-fa ce visit with more than 50% of my time spent counseling the patient about their diagnosis including pathophysi ology and treatment options. Degenerati on of lumbar intervertebral disc 52163075 M51.36 Scoliosis deformity of spine 600464809 M41.9 Pain in le ft sacroiliac joint 1401705776 0503921 M53.3 [id number] MANJIT CONTRERAS [facility] [address] [place] [address] 05/02/2020 11:42:51 05/24/2020 11:08:49 Degeneration of lumbar intervertebral disc 07225801 M51.36 Osteoarthr itis of left hip joint 6571599346 59810 M16.12 At today's office visit We discussed the utilizatio n of our 3 however the patient does live in trial[place] joint is interested today in attending physical therapy. She did get a physical therapy prescripti on as well as she was provided with the Robaxin 750 mg to take for her muscle spasms. I do think she has problems in her movement pattern causing increased her pain and discomfort as well as muscle spasms. We will see her back in 6 weeks. Hip pain 98225310 M25.55 2 [id number] MANJIT CONTRERAS [facility] [address] [place] [address] 07/26/2020 15:37:05 08/04/2020 12:33:16 Hip pain 37889159 M25.552 Osteoarthr itis of left hip joint 9077536922 89330 M16.12 At today's office visit We discussed patient is persistent have pain and discomfort with minimal beneficial relief after having several biological treatment. At this point time we did discuss consult ink a surgeon for surgical interventi on for left total hip replacemen t. She was provided with Dr. Jose polo n. Health Concerns Section Related Observation LastModified by Organization Detai ls LastModified Time None Recorded Concern Status LastModified by Organization Details LastModified Time None Recorded Advance Directives Directive None Recorded Payers Encounter Date Sequence Insurance Name Policy Number Policy Wells Covered Member ID Wells Member ID Guarantor Name 11/29/2019 1 [employer] - FOR LIFE (SECONDARY TO MEDICARE) Mona L Posmanick [id number] Mona L Posmanick 05/02/2020 1 *SELF PAY* Ta mi L Posmanick 05/02/2020 2 [facility] - DOS PRIOR TO 2024 - [employer] - SELECT ( - PPO) Mona Ferguson Posmanick [id number] Mona Ferguson Posmanick 07/26/2020 1 *SELF PAY* Jose Daniel Ferguson Posmanick 07/26/2020 2 [place] - DOS PRIOR TO 2024 - [employer] - SELECT ( - PPO) Mona Ferguson Posmanick [id number] Mona Malone Notes Date Note Type Note Provider Name and Address Organization Details Recorded Time 11/29/2019 text/html 64-year-old nancy león who comes in today complaining of pain discomfort in her left hip that is been ongoing since 2017. She has known injury of having labral tear. She states her pain is progressively getting worse. She describes her pain as aching and intermittent. She also describes stiffness, loss of motion, cotton and giving way. She states movement and weight-bearing make the pain worse. Moving after sitting for prolonged period of time does help her pain. She was given orthotics to help with her pain and discomfort. She states rest, ice, elevation, healthcare management consultant, nonsteroidal anti-inflammatories, massage, exercise, Tylenol pain medication of all been tried. She did try corticosteroid injection which gave her approximately 2 and half years of relief. She states her pain has gotten worse over the last 3 months. She rates her pain anywhere from 0 to a 9/10 depending on activity. MANJIT CONTRERAS [address], [place], [address], [facility], [facility] 12/03/2019 17:25:58 05/02/2020 text/html 64-year-old nancy león who comes in today for follow-up visit regards her left hip. She was treated with stem cells back in November and then PRP in February. She has no pain with sitting she states majority of her pain and discomfort comes whenever she stands and whenever she walks for long periods time her pain increases to an 8. She attributes that to muscle spasms. She has been seeing a chiropractor as well. She states that she feels she has improved significantly however still difficult to walk. She feels her hip gives out or gives way on her. MANJIT CONTRERAS [address] [facility] [address], [place], [address], [employer], [facility] 05/02/2020 16:06:58 07/26/2020 text/html 65-year-old nancy león comes in today for follow-up in regards to her left hip. She was treated last year and still persist to have extreme pain and discomfort in her left hip. She states that she has started to have problems getting around is resulted to utilization of a cane. She can get much relief out of her treatment and is here today to discuss further options. MANJIT CONTRERAS [address] [facility] [address], [place], [address], [employer], [facility] 07/27/2020 16:13:59 OBGyn Episode No OBEpisode recorded.
[2024-09-14 18:33] LABS: Basophils Percent Auto 0.4 % (0.2-1.2); Eosinophils Percent Auto 0.4 % (0-4.4); Hematocrit 45.7 % (37.0-47.0); Hemoglobin 15.3 g/dL (12.0-15.0); Immature Granulocyte Absolute 0.04 K/mm3 (0.00-0.031); Immature Granulocyte Percent A 0.5 % (0-0.5); Lymphocytes Percent Auto 16.5 % (18.3-44.2); Mean Corpuscular HGB Conc 33.5 g/dl (32-36); Mean Corpuscular Hemoglobin 31.3 pg (26-34); Mean Corpuscular Volume 93.5 fl (80-100); Mean Platelet Volume 10.4 fl (7.4-10.4); Monocytes Absolute Auto 0.6 K/mm3 (0.1-0.6); Monocytes Percent Auto 7.5 % (2.6-8.5); Neutrophils Absolute Auto 5.9 K/mm3 (1.3-6.7); Neutrophils Percent Auto 74.7 % (45.5-73.1); Platelet Count Result 244 k/mm3 (150-375); Red Blood Count 4.89 M/mm3 (4.2-5.4); Red Cell Distribution Width 13.5 % (11.5-14.5); White Blood Count 7.9 K/mm3 (4.5-10.0)
--- NOTE | 2024-09-14 18:39 | ED_ITS ---
HPI - Nausea/Vomiting/Diarrhea General Chief complaint: Nausea/Vomiting/Diarrhea Stated complaint: nausea, vomiting, migraine Time Seen by Provider: 09/14/24 18:25 History of Present Illness HPI Narrative: 69-year-old female presenting to the emergency room with chief complaint of migraine headache. She has a history of headaches, BPPV, alopecia areata. She presents with 24 hours of a left-sided headache that migrated towards the right side associated some nausea and vomiting. She states that has had similar headache migraines in the past. This feels very similar and associated with some photophobia. Denies any abdominal pain or diarrhea. Endorses some fever and chills intermittently. No sick contacts or recent upper respiratory symptoms. No difficulty breathing or chest pain/chest tightness. She was otherwise in her normal state of health. Related Data Home Medications ?Medication ?Instructions ?Recorded ?Confirmed ?Last Taken ?Type dupilumab 300 mg/2 mL subcutaneous mg subcut 08/09/22 08/12/24 Unknown History pen injector (Dupixent) Allergies Allergy/AdvReac Type Severity Reaction Status Date / Time adhesive tape Allergy Mild Rash Verified 09/14/24 18:05 Penicillins Allergy Unknown Rash Verified 09/14/24 18:05 morphine AdvReac Intermediate Hallucinati Verified 09/14/24 18:05 ng erythromycin base AdvReac Unknown Nausea and Verified 09/14/24 18:05 Vomiting Review of Systems 2 Review of Systems: As reviewed above in HPI [facility] Past Medical History Medical History BPPV (benign paroxysmal positional vertigo) Osteoarthritis Atopic dermatitis Allergic rhinitis Alopecia areata Degenerative disc disease ADD (attention deficit disorder) Surgical History Surgical History History of shoulder surgery 10/2023 History of total right hip arthroplasty 06/28/2022 History of total left hip replacement 08/2020 Hx of varicose vein stripping 2008 History of foot surgery R 5th toe repair 2008 History of D&C 1999 Family History Family History Other Family history of arthritis Family history of malignant neoplasm Social History Social History Smoking status: Never smoker Alcohol intake: never Substance use: never Lack of Transportation: No Lack of Food: Never True Current Housing: I Have Housing Concerned About Future Housing: No Difficulty Paying Gas/Electric Bills: No Difficulty Paying for Meds: No Currently Unemployed: YES Education: Master's Degree or Higher Difficulty w/ Childcare or Family Care: No Living arrangements: with family Occupation/Education: unemployed Gender identity (if verbalized by the patient): Female Sexual Orientation (if Verbalized by the Patient): Straight or Heterosexual Exam 2 Narrative: GENERAL: [Well-appearing, well-nourished, and in no acute distress.] HEAD: Normocephalic, atraumatic, alopecia. EYES: [PERRLA and EOMI.] ENT: Nares clear, no rhinorrhea or epistaxis. Mucous membranes moist. NECK: Supple. CHEST: [Clear to auscultation. No respiratory distress.] HEART: [Regular rate and rhythm]. No murmur heard. [Normal peripheral pulses.] ABDOMEN: [Soft, nondistended], [nontender], [No rigidity or guarding] EXTREMITIES: Normal range of motion. [No edema.] SKIN: Warm, dry, no rash. NEURO: [No focal deficits]. Alert and oriented [x3.] PSYCH: [Normal mood and affect.] Course Vital Signs Vital signs: Vital Signs Temperature 36.6 C 09/14/24 18:06 Pulse Rate 92 09/14/24 18:06 Respiratory Rate 14 09/14/24 18:06 Blood Pressure 167/93 H 09/14/24 18:06 Pulse Oximetry 100 09/14/24 18:06 Oxygen Delivery Room Air 09/14/24 18:06 Temperature 36.6 C 09/14/24 18:06 Pulse Rate 92 09/14/24 18:06 Respiratory Rate 14 09/14/24 18:06 Blood Pressure 167/93 H 09/14/24 18:06 Pulse Oximetry 100 09/14/24 18:06 Oxygen Delivery Room Air 09/14/24 18:06 MDM - Nausea/Vomiting/Diarrhea MDM Narrative Medical decision making narrative: 69-year-old female with a history of headaches, BPPV, alopecia. She presents to the emergency room with chief complaint of a migraine headache associated nausea and vomiting for last 24 hours. Initially started as unilateral left-sided headache now right-sided. No abdominal pain, back pain, diarrhea, chest pain, shortness a breath. Endorses subjective fever and chills. Blood pressure acceptable, no tachycardia, fever or hypoxia. She has an unremarkable neurological assessment, awake alert oriented answers all questions appropriately. She states this feels very similar to migraine headache she has had over a year ago. No injury or red flag signs on her examination to make me suspicious for significant intracranial pathology such as a mass or bleed. Low suspicion for infectious pathology given her lack of fever and normal heart rate. Will obtain basic laboratory studies and treat her for migraine headache and re-evaluated. She is given a migraine headache cocktail including Toradol, Compazine, diphenhydramine, normal saline bolus. Patient re-evaluated frequently. Patient's workup was reassuring. No leukocytosis or significant anemia. Normal platelet count. Normal electrolytes, renal and hepatic function within normal limits. Normal glucose, normal lipase. Negative viral panel. Patient was re- evaluated after migraine cocktail and had complete symptomatic resolution. She felt significantly improved. At this time she is safe for discharge home at this time and will follow-up with her primary care provider as needed. Medical Records Attestation: I reviewed the patient's medical records. Lab Data Attestation: I reviewed the patient's lab results. 09/14/24 18:27 09/14/24 18:27 Labs: Lab Results 09/14/24 09/14/24 Range/Units 18:27 18:50 WBC 7.9 (4.5-10.0) K/mm3 RBC 4.89 (4.2-5.4) M/mm3 Hgb 15.3 H (12.0-15.0) g/dL Hct 45.7 (37.0-47.0) % MCV 93.5 (80-100) fl MCH 31.3 (26-34) pg MCHC 33.5 (32-36) g/dl RDW 13.5 (11.5-14.5) % Plt Count 244 (150-375) k/mm3 MPV 10.4 (7.4-10.4) fl Immature Gran % (Auto) 0.5 (0-0.5) % Neut % (Auto) 74.7 H (45.5-73.1) % Lymph % (Auto) 16.5 L (18.3-44.2) % Redwood % (Auto) 7.5 (2.6-8.5) % Eos % (Auto) 0.4 (0-4.4) % Baso % (Auto) 0.4 (0.2-1.2) % Lymph # (Auto) 1.30 (0.9-3.2) K/mm3 Redwood # (Auto) 0.6 (0.1-0.6) K/mm3 Eos # (Auto) 0.0 (0-0.3) K/mm3 Baso # (Auto) 0.0 (0.0-0.1) K/mm3 Abs Immat Gran (auto) 0.04 H (0.00-0.031) K/mm3 Absolute Neuts (auto) 5.9 (1.3-6.7) K/mm3 Absolute Nucleated RBC 0.000 (0.0-0.012) K/mm3 Nucleated RBC % 0.0 (0.0-0.2) % Sodium 139 (137-145) mmol/L Potassium 4.2 (3.4-5.0) mmol/L Chloride 103 (98-107) mmol/L Carbon Dioxide 22 (22-30) mmol/L Anion Gap 14 H (4-12) mmol/L BUN 10 (7-17) mg/dL Creatinine 0.51 L (0.7-1.0) mg/dL Estim Creat Clear Calc 86 ml/min Estimated GFR > 60 (59 - ) Glucose 117 H (65-110) mg/dL Calcium 10.0 (8.4-10.2) mg/dL Total Bilirubin 1.0 (0.2-1.3) mg/dL AST 35 (14-36) U/L ALT 27 (6-35) U/L Alkaline Phosphatase 104 (38-126) U/L Total Protein 8.0 (6.3-8.2) g/dL Albumin 4.9 (3.5-5.1) g/dL Lipase 93 (23-300) U/L Influenza A (RT-PCR) Negative (Negative) Influenza B (RT-PCR) Negative (Negative) RSV (RT-PCR) Negative (Negative) SARS-CoV-2 RNA (RT-PCR) Negative (Negative) Discharge Plan Discharge Clinical Impression: Headache, migraine Patient Disposition: Home Condition: Stable Instructions: Antibiotic Form, Acute Headache (DC) Additional Instructions: All your laboratory studies are normal. Your headache likely secondary to a migraine which has resolved after treatment here in the emergency department. Follow-up with regular doctor as needed. Return with any new or worsening concerns at any time. Patient Language: Indonesian Prescriptions: No Action Dupixent Pen 300 mg/2 mL pen injector subcut methocarbamol 750 mg tablet 750 mg PO BID PRN (Reason: muscle spasm) Qty: 30 5RF alendronate 70 mg tablet 70 mg PO WEEKLY Qty: 12 0RF scopolamine base 1 mg over 3 days patch 3 day 1 patch transdermal Q3D PRN (Reason: motion sickness) Qty: 4 0RF pregabalin 200 mg capsule 200 mg PO BID Qty: 120 0RF propranolol 40 mg tablet 40 mg PO BID Qty: 180 1RF hydrocodone-acetaminophen 7.5-325 mg tablet 1 tablet PO Q8H PRN (Reason: pain) Qty: 90 0RF Follow-up/Referrals: Sarath Boston MD [Primary Care Provider] - Time of Disposition: 20:18
[2024-09-14 18:40] LABS: Alanine Aminotransferase 27 U/L (6-35); Albumin Level 4.9 g/dL (3.5-5.1); Alkaline Phosphatase 104 U/L (38-126); Anion Gap 14 mmol/L (4-12); Aspartate Amino Transferase 35 U/L (14-36); Blood Urea Nitrogen 10 mg/dL (7-17); Carbon Dioxide 22 mmol/L (22-30); Chloride 103 mmol/L (98-107); Estimated CRCL calculation 86 ml/min; Estimated Glomerular Filt Rate > 60; Glucose 117 mg/dL (65-110); Lipase 93 U/L (23-300); Potassium 4.2 mmol/L (3.4-5.0); Sodium 139 mmol/L (137-145)
[2024-09-14] MEDS: diphenhydrAMINE HCl INJ 50 MG/ML VIAL 25 MG IV PUSH (18:41)
[2024-09-14] MEDS: KETOROLAC 15 MG/ML VIAL (*BKC) IV PUSH (18:41)
[2024-09-14] MEDS: PROCHLORPERAZINE EDISYLATE 10 MG/2 ML VIAL IV PUSH (18:42)
[2024-09-14] MEDS: SODIUM CHLORIDE 0.9% IV 1,000 ML 999 ML IV CONT (18:42)
[2024-09-14 19:30] LABS: Influenza A QL RT-PCR Negative (Negative); Influenza B QL RT-PCR Negative (Negative); RSV RNA, RT-PCR Negative (Negative); SARS-CoV-2 RNA PCR Negative (Negative)
--- OUTSIDE RECORDS SUMMARY | 2024-09-14 19:36 | XMS_ITS | Clinical Summary ---
Author Organization [facility] Address [address] [place] [address] Care Team Providers Care Facilities Manager Name Role Phone Unavailable Primary Care Provider Unavailabl e Source Comments [facility],non-owned Affiliates and Associated Physician Practices is amultiple site organization consisting of ambulatory clinics and hospital sitesin [place], [place], [place] and [place]. This disclosure is being madepursuant to the Care Everywhere program and may not contain all information available regarding this patient. 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
--- OUTSIDE RECORDS SUMMARY | 2024-09-14 19:36 | XMS_ITS | Referral Summary ---
Author Organization [facility] Address [address] [place] [address] Care Team Providers Care Arabic Teacher Name Role Phone Candido Mosqueda MD Unavailable [phone] Sarath Boston MD Primary Care Provider [phone] Allergies Active Allergy Reactions Criticality Noted Date Comments Adhesive Redness Low 08/15/2020 Clindamycin Nausea & Vomiting Low 05/23/2022 Erythromycin Stomach upset Low 06/13/2020 Stomach/GI Upset Morphine Hallucinations Medium 08/15/2020 Scnapbvi-Calvzfgpky-Gpq ymyxin Swelling Medium 08/15/2020 redness Penicillins Unknown [...] (05/14/2022): Added automatically from request for surgery [id number] Hoarseness 02/04/2021 Shortness of breath 02/04/2021 Intractable vomiting 09/13/2020 History of total left hip replacement 09/13/2020 Primary osteoarthritis of left hip 08/10/2020 Overview (08/10/2020): Added automatically from request for surgery [id number] Arthralgia of shoulder 02/18/2012 Aerophagia Immunizations Immunization Administration Dates Next Due 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 ([employer]) SARS-CoV-2 Vaccination 08/03/2020 Social History Tobacco [...] on file Legal Sex Female 9:29 PM DIRECTOR OF OPERATIONS Gender Identity Not on file Sexual Orientation Not on file 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 file Not on file Not on file Last Filed Vital Signs Vital Sign Reading Time Taken Comments Blood Pressure 107/59 06/29/2022 8:15 AM DIRECTOR OF OPERATIONS Pulse 68 06/29/2022 8:15 AM DIRECTOR OF OPERATIONS Temperature 36.3 C (97.4 F) 06/29/2022 4:00 AM DIRECTOR OF OPERATIONS Respiratory Rate 16 06/29/2022 8:15 AM DIRECTOR OF OPERATIONS Oxygen Saturation 100% 06/29/2022 8:15 AM DIRECTOR OF OPERATIONS Inhaled Oxygen Concentration - - Weight 66.3 kg (146 lb 2.6 oz) 06/28/2022 8:00 A M DIRECTOR OF OPERATIONS Height 172.7 cm (5' 8 ) 06/28/2022 8:00 AM DIRECTOR OF OPERATIONS Body Mass Index 22.22 06/28/2022 8:00 AM DIRECTOR OF OPERATIONS Plan of Treatment Not on file Medical Devices Implanted Type Area Streetcar Repairer Helper Device Identifier Shelf Expiration Date Model / Serial / Lot [employer] 7844-8232 Screw Bone Trident Ii L35mm Od6.5mm Low Profile Hexagonal Sterile - [id number] Implanted:Qty: 1 on 09/07/2020 by Candido Mosqueda MD at [facility] Left: Hip [employer] [id number] 11/21/2024 5310-3024 / / [id number] [employer] Preparation Kit Medium Restrictor Implanted:Qty: 1 on 09/07/2020 by Candido Mosqueda MD at [facility] Left: Hip [employer] 02/23/2025 5263-198-558 / / [id number] Description:item listed / ch arged on supply screen [employer] [id number] 36mm Anatomic Hip +0mm Offset Taper Head Femoral Biolox Delta - [id number] Implanted:Qty: 1 on 09/07/2020 by Candido Mosqueda MD at [facility] Left: Hip [employer] [id number] 05/16/2025 [id number] / / [id number] [employer] 3440-0858 Screw Bone Trident Ii L50mm Od6.5mm Low Profile Hexagonal Sterile - [id number] Implanted:Qty: 1 on 09/07/2020 by Candido Mosqueda MD at [facility] Left: Hip [employer] [id number] 03/31/2024 7707-5829 / / [id number] [employer] 702--56f Shell Acetabular Trident Ii Tritanium F Od56mm Hip 5 Screw Hole Cluster Sterile - [id number] Implanted:Qty: 1 on 09/07/2020 by Candido Mosqueda MD at [facility] Left: Hip [employer] [id number] 04/25/2025 702-04-56F / / [id number] [employer] 5291-7080 Screw Bone Trident Ii L35mm Od6.5mm Low Profile Hexagonal Sterile - [id number] Implanted:Qty: 1 on 09/07/2020 by Candido Mosqueda MD at [facility] Left: Hip [employer] [id number] 05/04/2024 9561-0393 / / [id number] [employer] 8019-0980 Screw Bone Trident Ii L20mm Od6.5mm Low Profile Hexagonal Sterile - [id number] Implanted:Qty: 1 on 09/07/2020 by Candido Mosqueda MD at [facility] Left: Hip [employer] [id number] 03/28/2025 0997-4944 / / [id number] [employer] 623-00-36f 36mm 7.9mm Hip 0d F Liner Acetabular X3 - [id number] Implanted:Qty: 1 on 09/07/2020 by Candido Mosqueda MD at [facility] Left: Hip [employer] [id number] 06/19/2025 623-00-36F / / [id number] [employer] 6191-1-010 Simplex P Radiopaque Full Dose Cement Bone Sterile - [id number] Implanted:Qty: 1 on 09/07/2020 by Candido Mosqueda MD at [facility] Left: Hip [employer] 05/25/2021 6191-1-010 / / [id number] [employer] 6191-1-010 Simplex P Radiopaque Full Dose Cement Bone Sterile - [id number] Implanted:Qty: 1 on 09/07/2020 by Candido Mosqueda MD at [facility] Left: Hip [employer] 05/25/2021 6191-1-010 / / [id number] [employer] 0580-1-442 [place] V40 Cemented Hip 2 44mm Offset Stem Femoral - [id number] - [id number] Implanted:Qty: 1 on 09/07/2020 by Candido Mosqueda MD at [facility] Left: Hip [employer] [id number] 07/08/2021 0580-1-442 / [id number] / [id number] [employer] Simplex P Radiopaque Full Dose Cement Bone Sterile 6191-1-010 - [id number] Implanted:Qty: 1 on 06/28/2022 by Candido Mosqueda MD at [facility] Right: Hip [employer] 11/22/2024 6191-1-010 / / [id number] [employer] Simplex P Radiopaque Full Dose Cement Bone Sterile 6191-1-010 - [id number] Implanted:Qty: 1 on 06/28/2022 by Candido Mosqueda MD at [facility] Right: Hip [employer] 11/22/2024 6191-1-010 / / [id number] [employer] Bioprep Preparation Plug Sanitation Technician Fishers Curette Suction Femoral [id number] - [id number] Implanted:Qty: 1 on 06/28/2022 by Candido Mosqueda MD at [facility] Right: Hip [employer] 02/23/2027 [id number] / / [id number] [employer] Shell Acetabular Trident Ii Tritanium E Od54mm Hip 5 Screw Hole Cluster Sterile 702-04-54e - [id number] Implanted:Qty: 1 on 06/28/2022 by Candido Mosqueda MD at [facility] Right: Hip [employer] [id number] 04/03/2027 702-04-54E / / [id number] [employer] Screw Bone Trident Ii L50mm Od6.5mm Low Profile Hexagonal Sterile 5088-9261 - [id number] Implanted:Qty: 1 on 06/28/2022 by Candido Mosqueda MD at [facility] Right: Hip [employer] [id number] 03/19/2027 1523-0478 / / [id number] [employer] Screw Bone Trident Ii L25mm Od6.5mm Low Profile Hexagonal Sterile 6553-1976 - [id number] Implanted:Qty: 1 on 06/28/2022 by Candido Mosqueda MD at [facility] Right: Hip [employer] [id number] 04/29/2027 8329-0185 / / [id number] [employer] Insert Trident 0deg X3 36mm Id 723-00-36e - [id number] Implanted:Qty: 1 on 06/28/2022 by Candido Mosqueda MD at [facility] Right: Hip [employer] [id number] 04/26/2027 723-00-36E / / [id number] [employer] [place] V40 Cemented Hip 1 37.5mm Offset Stem Femoral 0580-1-371 - [id number] - [id number] Implanted:Qty: 1 on 06/28/2022 by Candido Mosqueda MD at [facility] Right: Hip [employer] [id number] 01/30/2027 0580-1-371 / [id number] / [id number] [employer] V40 36mm Anatomic Hip +0mm Offset Taper Head Femoral [employer] Delta [id number] - [id number] Implanted:Qty: 1 on 06/28/2022 by Candido Mosqueda MD at [facility] Right: Hip [employer] [id number] 03/20/2027 [id number] / / [id number] Procedures Procedure Name Priority Date/Time Associated Diagnosis Comments SCREENING MAMMOGRAM BILATERAL W JOSE LUIS Schedule Routine, Read Routine (OP Routine) 06/12/2023 11:19 AM DIRECTOR OF OPERATIONS Encounter for screening mammogram for malignant neoplasm of breast from Last 3 Months or Most Recently Relevant to Health Maintenance Results * Screening Mammogram Bilateral W Jose Luis (06/12/2023 11:19 AM DIRECTOR OF OPERATIONS) Anatomical Region Laterality Modality Breast Bilateral Mammography Impressions 06/12/2023 11:45 AM DIRECTOR OF OPERATIONS BI-RADS ATLAS category (overall): 1 - Negative There is no mammographic evidence of malignancy. A 1 year screening mammogram is recommended. The patient has been or will be contacted. We recommend annual screening mammography for women at average risk of breast cancer beginning at age 40, based on guidelines of the [place] [employer] (ACR Practice Parameter for the Performance of Screening and Diagnostic Mammography) and [place] [employer]. For women with and elevated risk of breast cancer, please refer to the ACR Practice Parameter for specific screening recommendations. The patient will be entered into a reminder system with a target due date of 1 year for her next screening exam. 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
--- OUTSIDE RECORDS SUMMARY | 2024-09-14 19:36 | XMS_ITS | Encounter Summary ---
Author Organization [facility] Address [address] [place] [address] Care Team Providers Care Timber Sizer Operator Name Role Phone Sarath [place] MD Primary Care Provider [phone] Encounter Details Date Type Department Care Team (Late st Contact Info) Description 11/20/2022 MyChart Message Enc [facility] [address] [place], [place] [address] [facility] Provider Air Quality Message Social History Tobacco [...] Total Score: 0 04/03/20 21 8:37 AM TAX MANAGER PUBLIC documented as of this encounter Care Teams Timber Sizer Operator Relationship Specialty Start Date End Date Sarath Boston MD [address] [place] [address] PCP - General FAMILY PRACTICE 12/25/20 documented as of this encounter
--- OUTSIDE RECORDS SUMMARY | 2024-09-14 19:36 | XMS_ITS | Encounter Summary ---
Author Organization [facility] Address [address] [place] [address] Care Team Providers Care Cruise Guide Name Role Phone Unavailable Primary Care Provider Unavailabl e Encounter Details Date Type Department Care Team (Latest Contact Info) Description 09/27/2008 Outpatient Historical [facility] NicholsMichel MD [address] [place] [address] [place] [phone] Uncomplicated Varicose Veins Social History Tobacco Use Types Packs/Day Years Used Date Smoking Tobacco: Never Assessed Comments Unknown Sex and Gender Information Value Date Recorded Sex Assigned at Not on file Legal Sex Female 5: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
--- OUTSIDE RECORDS SUMMARY | 2024-09-14 19:36 | XMS_ITS | Encounter Summary ---
Author Organization [facility] Address [address] [place] [address] Care Team Providers Care Copy Cutter Name Role Phone Unavailable Primary Care Provider Unavailabl e Encounter Details Date Type Department Care Team (Late st Contact Info) Description 07/30/2019 Lab Requisition [facility] [address], [place] [id number] Eliazar Harris MD [address] [place] [address] Social History Tobacco Use Types Packs/Day Years Used Date Smoking Tobacco: Never Assessed Comments Unknown Sex and Gender Information Value Date Recorded Sex Assigned at Not on file Legal Sex Female 10:43 AM CROP DUSTER Gender Identity Not on file Sexual Orientation Not on file documented as of this encounter Plan of Treatment Not on file documented as of this encounter Procedures Procedure Name Priority Date/Time Associated Diagnosis Comments DERMATOPATHOLOGY Routine 07/28/2019 12:0 0 AM CROP DUSTER documented in this encounter Results * DERMATOPATHOLOGY (07/28/2019 12:00 AM CROP DUSTER) Case Report Dermatopathology Report Case: [id number] Authorizing Provider: Eliazar Harris MD Collected: 07/28/2019 12:00 AM Ordering Location: [facility] Received: 07/30/2019 06:32 AM Pathologist: Ella Watts MD Specimen: Skin, right calf 0 1:54 PM CDT DERMATOPATHOLOGY LABORATORY Final Diagnosis Specimen A. SKIN, right calf: LICHEN SIMPLEX CHRONICUS (L28.0) STASIS DERMATITIS (L30.8) 0 1:54 PM CDT DERMATOPATHOLOGY LABORATORY Clinical History LP vs other. Path# [id number] 0 1:54 PM CDT DERMATOPATHOLOGY LABORATORY Gross [...] characteristic determined by the Dermatopathology Laboratory at [facility], directed by Dr. Ginny Cortés. These tests need not be, and therefore are not, approved by the [place] Food and Drug Administration. The tests are used for clinical purposes. Billing Codes Specimen Charges Stain Charges 32947 1 0 1:54 PM CDT DERMATOPATHOLOGY LABORATORY Embedded Images 0 1:54 PM CDT DERMATOPATHOLOGY LABORATORY Pathology/Cytolog y TISSUE SPECIMEN FROM SKIN / Unknown 07/28/2019 07/30/2019 6:32 AM CROP DUSTER us Eliazar Harris MD LAB - PATHOLOGY/CYTOLOGY ORDER JOYCE Final Result DERMATOPATHOLOGY LABORATORY [facility] - Department of Dermatology [address] [place] [address], [address] [place] [address], [facility] [phone] documented in this encounter Visit Diagnoses Not on filedocumented in this encounter
--- OUTSIDE RECORDS SUMMARY | 2024-09-14 19:36 | XMS_ITS | Clinical Summary ---
Author Organization [facility] Address [facility] [place] [address] Care Team Providers Care Dispatch Manager Name Role Phone Sarath [place] MD Primary Care Provider [phone] Allergies Active Allergy Reactions Criticality Noted Date [...] (04/03/2021): Added automatically from request for surgery [id number] Arthralgia of shoulder 02/18/2012 Encounters Date Type Department Care Team Description 06/16/2024 [facility]phone [facility] - [address] [place] [address] Jose M Sosa MD Reschedule from Last 3 Months Immunizations Immunization Administration Dates Next Due Hepatitis A (Havrix [address]) 06/24/2018 Influenza Adult (Generic) 01/24/2022,04/2021,02/10/2020,2018,06/11/2018,04/12/2016 GIL ([employer]) COVID-19 AD26 VACCINE 0.5 ML IM SUSP [...] Comments Blood Pressure 128/88 04/09/2024 10:52 AM FILTER MACHINE OPERATOR Pulse 72 04/09/2024 10:52 AM FILTER MACHINE OPERATOR Temperature 36.5 C (97.7 F) 04/09/2024 10:52 AM FILTER MACHINE OPERATOR Respiratory Rate 18 04/09/2024 10:52 AM FILTER MACHINE OPERATOR Oxygen Saturation 99% 04/09/2024 10:52 AM FILTER MACHINE OPERATOR RA Inhaled Oxygen Concentration - - Weight 69.4 kg (153 lb) 04/09/2024 10:52 AM FILTER MACHINE OPERATOR Height 172.7 cm (5' 8 ) 04/09/2024 10:52 AM FILTER MACHINE OPERATOR Body Mass Index 23.26 04/09/2024 10:52 AM FILTER MACHINE OPERATOR Plan of Treatment Health Maintenance Due Date Last Done Comments Hepatitis C 1974 Pneumococcal Vaccine: 50+ Years (1 of 2 - PCV) 1975 Zoster Vaccines (1 of 2) 2006 RSV Immunization or 60+ Years (1 - Risk 60-74 years 1-dose series) 2016 Annual Medicare Wellness Visit 2021 Dexa Scan (General) 2021 COVID-19 Vaccine (3 - 2023-2 5 season) 2024 03/23/2021, 08/03/2020 PHQ-2 (Physician [place]) 05/26/2024 09/13/2022 Mammogram Screening 06/12/2025 06/12/2023, 08/04/2017 [...] Most Recently Relevant to Health Maintenance Insurance [facility] MessageMe MEDICARE Care Teams Dispatch Manager Relationship Specialty Start Date End Date Sarath Boston MD [address] [place] [address] PCP - General FAMILY PRACTICE 12/25/20
--- OUTSIDE RECORDS SUMMARY | 2024-09-14 19:36 | XMS_ITS | Encounter Summary ---
Author Organization [facility] Address [address] [place] [address] Care Team Providers Care Fur Blower Operator Name Role Phone Unavailable Primary Care Provider Unavailabl e Encounter Details Date Type Department Care Team (Latest Contact Info) Description 08/09/2008 Outpatient Historical [facility] CARDIOPULMONARY NicholsMichel MD [address] [place] [address] [place] [phone] Uncomplicated Varicose Veins Social History Tobacco Use Types Packs/Day Years Used Date Smoking Tobacco: Never Assessed Comments Unknown Sex and Gender Information Value Date Recorded Sex Assigned at Not on file Legal Sex 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
--- OUTSIDE RECORDS SUMMARY | 2024-09-14 19:36 | XMS_ITS | Clinical Summary ---
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
--- OUTSIDE RECORDS SUMMARY | 2024-09-14 19:36 | XMS_ITS | Encounter Summary ---
Author Organization [facility] Address [address] [place] [address] Care Team Providers Care Pathology Manager Name Role Phone Unavailable Primary Care Provider Unavailabl e Encounter Details Date Type Department Care Team (Latest Contact Info) Description 10/31/2008 Outpatient Historical HIS CARDIOPULMONARY NicholsMichel MD [address] [place] [address] [place] [phone] Uncomplicated Varicose Veins Social History Tobacco Use Types Packs/Day Years Used Date Smoking Tobacco: Never Assessed Comments Unknown Sex and Gender Information Value Date Recorded Sex Assigned at Not on file Legal Sex Female 5:43 AM 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
--- OUTSIDE RECORDS SUMMARY | 2024-09-14 19:36 | XMS_ITS | Continuity of Care Document ---
Author Name [facility] Organization [facility] Care Team Providers Care Top Steep Tender Name Role Phone [facility] Unavailable Unavailable Medications Combined list of outpatient [...] AUROBINDO PHARM, 100 ea. BOTTLE Cancele d [id number] : 2023 0 Pharmac y Data Transac tion Service Facilit y CELECOXIB (celecoxib) , 200 MG, CAPSULE, ORAL, AUROBINDO PHARM, 100 ea. BOTTLE Active [id number] 4 2023 14 Pharmac y Data Transac tion Service Facilit y DUPIXENT PEN (dupilumab) , 300 MG/2ML, PEN INJCTR, SUBCUT, SANOFI-AVEN TIS, 2 ml SYRINGE Cancele d [id number] : 2023 0 Pharmac y Data Transac tion Service Facilit y DUPIXENT PEN (dupilumab) , 300 MG/2ML, PEN INJCTR, SUBCUT, SANOFI-AVEN TIS, 2 ml SYRINGE Active [id number] 4 2023 8 Pharmac y Data Transac tion Service Facilit y DUPIXENT PEN (dupilumab) , 300 MG/2ML, PEN INJCTR, SUBCUT, SANOFI-AVEN TIS, 2 ml SYRINGE Active [id number] 2023 8 Pharmac y Data Transac tion Service Facilit y HYDROCODONE -ACETAMINOP HEN (HYDROCODON E/ACETAMINO PHEN), 5MG-325MG, TABLET, ORAL, MALLINCKROD T PH, 500 ea. BOTTLE Cancele d [id number] : 2023 0 Pharmac y Data Transac tion Service Facilit y HYDROCODONE -ACETAMINOP HEN (HYDROCODON E/ACETAMINO PHEN), 5MG-325MG, TABLET, ORAL, MALLINCKROD T PH, 500 ea. BOTTLE Active [id number] 4 2023 20 Pharmac y Data Transac tion Service Facilit y HYDROCODONE -ACETAMINOP HEN (HYDROCODON E/ACETAMINO PHEN), 7.5-325MG, TABLET, ORAL, MALLINCKROD T PH, 500 ea. BOTTLE Active [id number] 4 2023 90 Pharmac y Data Transac tion Service Facilit y HYDROCODONE -ACETAMINOP HEN (HYDROCODON E/ACETAMINO PHEN), 7.5-325MG, TABLET, ORAL, MALLINCKROD T PH, 500 ea. BOTTLE Active [id number] 4 2023 90 Pharmac y Data Transac tion Service Facilit y HYDROCODONE -ACETAMINOP HEN (HYDROCODON E/ACETAMINO PHEN), 7.5-325MG, TABLET, ORAL, MALLINCKROD T PH, 500 ea. BOTTLE Active [id number] 4 2023 90 Pharmac y Data Transac tion Service Facilit y HYDROCODONE -ACETAMINOP HEN (HYDROCODON E/ACETAMINO PHEN), 7.5-325MG, TABLET, ORAL, MALLINCKROD T PH, 500 ea. BOTTLE Active [id number] 4 2023 90 Pharmac y Data Transac tion Service Facilit y HYDROCODONE -ACETAMINOP HEN (HYDROCODON E/ACETAMINO PHEN), 7.5-325MG, TABLET, ORAL, MALLINCKROD T PH, 500 ea. BOTTLE Active [id number] 4 2023 90 Pharmac y Data Transac tion Service Facilit y HYDROXYZINE HCL (hydroxyzin e HCl), 25 MG, TABLET, ORAL, RISING PHARM, 500 ea. BOTTLE Active [id number] 4 2023 30 Pharmac y Data Transac tion Service Facilit y METHYLPREDN ISOLONE (methylpred nisolone), 4 MG, TAB DS PK, ORAL, Fourandhalf, 21 ea. DOSE-PACK Active [id number] 4 2023 21 Pharmac y Data Transac tion Service Facilit y PREGABALIN (pregabalin ), 200 MG, CAPSULE, ORAL, [facility], 90 ea. BOTTLE Cancele d [id number] : 2023 0 Pharmac y Data Transac tion Service Facilit y PREGABALIN (pregabalin ), 200 MG, CAPSULE, ORAL, EXELAN PHARMACE, 90 ea. BOTTLE Active [id number] 4 2023 120 Pharmac y Data Transac tion Service Facilit y PREGABALIN (pregabalin ), 200 MG, CAPSULE, ORAL, NOVADOZ PHARMAC, 90 ea. BOTTLE Active [id number] 4 2023 120 Pharmac y Data Transac tion Service Facilit y SCOPOLAMINE (scopolamin e), 1 MG/3 DAY, PATCH TD 3, TRANSDERM, INGENUS PHARMAC, 4 ea. BOX Active [id number] 4 2023 4 Pharmac y Data Transac tion Service Facilit y Immunizations Combined list of available immunizations from the Department of Defense and Veterans Affairs facilities. Immunization Series Date Given Administered By Site Reaction Lot Number CVX Code Drug [place] Status Comments Source COVID-19, mRNA, LNP-S, PF, 100 mcg or 50 mcg dose 2021 [employer] (MOD) Not Given COVID-19, mRNA, LNP-S, PF, 100 mcg or 50 mcg dose DoD zoster recombinant 2021 AMIR[employer], () Not Given zoster recombina nt DoD COVID-19, mRNA, LNP-S, PF, 100 mcg or 50 mcg dose 2020 [employer] (MOD) Not Given COVID-19, mRNA, LNP-S, PF, 100 mcg or 50 mcg dose DoD Social History Combined list of available smoking, tobacco, and other social history from Department of Defense and Veterans Affairs facilities. Social History Type Response Date Comment [facility] e This section is an empty social history section. DoD
--- OUTSIDE RECORDS SUMMARY | 2024-09-14 19:36 | XMS_ITS | Clinical Summary ---
Author Organization [facility] Address [facility] [place] [address] Care Team Providers Care Auto Emissions Technician Name Role Phone Candido Mosqueda MD Unavailable [phone] Sarath Boston MD Primary Care Provider [phone] Allergies Active Allergy Reactions Criticality Noted Date Comments Adhesive Redness Low 08/15/2020 Clindamycin Nausea & Vomiting Low 05/23/2022 Erythromycin Stomach upset Low 06/13/2020 Stomach/GI Upset Morphine Hallucinations Medium 08/15/2020 Tqfaojfp-Ilcddjghpu-Snc ymyxin Swelling Medium 08/15/2020 redness Penicillins Unknown [...] (05/14/2022): Added automatically from request for surgery [id number] Hoarseness 02/04/2021 Shortness of breath 02/04/2021 Intractable vomiting 09/13/2020 History of total left hip replacement 09/13/2020 Primary osteoarthritis of left hip 08/10/2020 Overview (08/10/2020): Added automatically from request for surgery [id number] Arthralgia of shoulder 02/18/2012 Aerophagia Immunizations Immunization Administration Dates Next Due exozet (J&J) SARS-CoV-2 Vaccination 08/03/2020 Surgical History Surgery [...] on file Legal Sex Female 9:29 PM AIR DRILL OPERATOR Gender Identity Not on file Sexual Orientation Not on file Occupation Industry Job Start Date Job End Date [employer] Not on file Not on file Not on file Obstetrics History Para Term AB IAB SAB Ectopic Multiple Livin g Live Births 3 3 3 Date Outcome GA Total Labor Labor/2nd/3rd Weight Sex Type Anes PTL Jacquie A1 A5 Name Clin Term Term Term Last Filed Vital Signs Vital Sign Reading Time Taken Comments Blood Pressure 107/59 06/29/2022 8:15 AM AIR DRILL OPERATOR Pulse 68 06/29/2022 8:15 AM AIR DRILL OPERATOR Temperature 36.3 C (97.4 F) 06/29/2022 4:00 AM AIR DRILL OPERATOR Respiratory Rate 16 06/29/2022 8:15 AM AIR DRILL OPERATOR Oxygen Saturation 100% 06/29/2022 8:15 AM AIR DRILL OPERATOR Inhaled Oxygen Concentration - - Weight 66.3 kg (146 lb 2.6 oz) 06/28/2022 8:00 A M AIR DRILL OPERATOR Height 172.7 cm (5' 8 ) 06/28/2022 8:00 AM AIR DRILL OPERATOR Body Mass Index 22.22 06/28/2022 8:00 AM AIR DRILL OPERATOR Plan of Treatment Health Maintenance Due [...] 06/24/2028 06/24/2018 Medical Devices Implanted Type Area [employer] President Device Identifier Shelf Expiration Date Model / Serial / Lot [employer] [id number] Screw Bone Trident Ii L35mm Od6.5mm Low Profile Hexagonal Sterile - [id number] Implanted:Qty: 1 on 09/07/2020 by Candido Mosqueda MD at [facility] Left: Hip [employer] [id number] 11/21/2024 3933-4329 / / [id number] Avi Bi[employer]rep Bone Preparation Kit Medium Restrictor Implanted:Qty: 1 on 09/07/2020 by Candido Mosqueda MD at [facility] Left: Hip [employer] 02/23/2025 8665-515-350 / / [id number] Description:item listed / ch arged on supply screen [employer] [id number] 36mm Anatomic Hip +0mm Offset Taper Head Femoral Biol[employer] Delta - [id number] Implanted:Qty: 1 on 09/07/2020 by Candido Mosqueda MD at [facility] Left: Hip [employer] [place] [employer] [id number] 05/16/2025 [id number] / / [id number] [employer] 1955-2662 Screw Bone Trident Ii L50mm Od6.5mm Low Profile Hexagonal Sterile - [id number] Implanted:Qty: 1 on 09/07/2020 by Candido Mosqueda MD at [facility] Left: Hip [employer] [id number] 03/31/2024 9127-1465 / / [id number] [employer] [place] [employer] [id number] Shell Acetabular Trident Ii Tritanium F Od56mm Hip 5 Screw Hole Cluster Sterile - [id number] Implanted:Qty: 1 on 09/07/2020 by Candido Mosqueda MD at [facility] Left: Hip [employer] [id number] 04/25/2025 702-04-56F / / [id number] [employer] [facility] [employer] 8807-7794 Screw Bone Trident Ii L35mm Od6.5mm Low Profile Hexagonal Sterile - [id number] Implanted:Qty: 1 on 09/07/2020 by Candido Mosqueda MD at [facility] Left: Hip [facility] [id number] 05/04/2024 9776-5989 / / [id number] [employer] 2035-7353 Screw Bone Trident Ii L20mm Od6.5mm Low Profile Hexagonal Sterile - [id number] Implanted:Qty: 1 on 09/07/2020 by Candido Mosqueda MD at [facility] Left: Hip [facility] [id number] 03/28/2025 9093-0687 / / [id number] [employer] 623-00-36f 36mm 7.9mm Hip 0d F Liner Acetabular X3 - [id number] Implanted:Qty: 1 on 09/07/2020 by Candido Mosqueda MD at [facility] Left: Hip [employer] [id number] 06/19/2025 623-00-36F / / [id number] [employer] [facility] [employer] 6191-1-010 Simplex P Radiopaque Full Dose Cement Bone Sterile - [id number] Implanted:Qty: 1 on 09/07/2020 by Candido Mosqueda MD at [facility] Left: Hip [employer] 05/25/2021 6191-1-010 / / [id number] [employer] [facility] [employer] 6191-1-010 Simplex P Radiopaque Full Dose Cement Bone Sterile - [id number] Implanted:Qty: 1 on 09/07/2020 by Candido Mosqueda MD at [facility] Left: Hip [employer] 05/25/2021 6191-1-010 / / [id number] [employer] 0580-1-442 [place] V40 Cemented Hip 2 44mm Offset Stem Femoral - [id number] - [id number] Implanted:Qty: 1 on 09/07/2020 by Candido Mosqueda MD at [facility] Left: Hip [facility] [id number] 07/08/2021 0580-1-442 / [id number] / [id number] [employer] Simplex P Radiopaque Full Dose Cement Bone Sterile 6191-1-010 - [id number] Implanted:Qty: 1 on 06/28/2022 by Candido Mosqueda MD at [facility] Right: Hip [employer] 11/22/2024 6191-1-010 / / [id number] [facility] Simplex P Radiopaque Full Dose Cement Bone Sterile 6191-1-010 - [id number] Implanted:Qty: 1 on 06/28/2022 by Candido Mosqueda MD at [facility] Right: Hip [employer] 11/22/2024 6191-1-010 / / [id number] [employer] Bioprep Preparation Plug Spinning Bath Patroller [place] Curette Suction Femoral [id number] - [id number] Implanted:Qty: 1 on 06/28/2022 by Candido Mosqueda MD at [facility] Right: Hip [facility] 02/23/2027 [id number] / / [id number] [facility] [employer] Shell Acetabular Trident Ii Tritanium E Od54mm Hip 5 Screw Hole Cluster Sterile 702-04-54e - [id number] Implanted:Qty: 1 on 06/28/2022 by Candido Mosqueda MD at [facility] Right: Hip [employer] [id number] 04/03/2027 702-04-54E / / [id number] [employer] Screw Bone Trident Ii L50mm Od6.5mm Low Profile Hexagonal Sterile 3033-6907 - [id number] Implanted:Qty: 1 on 06/28/2022 by Candido Mosqueda MD at [facility] Right: Hip [employer] [id number] 03/19/2027 2506-6103 / / [id number] [facility] Screw Bone Trident Ii L25mm Od6.5mm Low Profile Hexagonal Sterile 8101-4143 - [id number] Implanted:Qty: 1 on 06/28/2022 by Candido Mosqueda MD at [facility] Right: Hip [facility] [id number] 04/29/2027 4710-1004 / / [id number] [employer] Insert Trident 0deg X3 36mm Id 723-00-36e - [id number] Implanted:Qty: 1 on 06/28/2022 by Candido Mosqueda MD at [facility] Right: Hip [employer] [id number] 04/26/2027 723-00-36E / / [id number] [employer] [place] V40 Cemented Hip 1 37.5mm Offset Stem Femoral 0580-1-371 - [id number] - [id number] Implanted:Qty: 1 on 06/28/2022 by Candido Mosqueda MD at [facility] Right: Hip [facility] [id number] 01/30/2027 0580-1-371 / [id number] / [id number] [facility] V40 36mm Anatomic Hip +0mm Offset Taper Head Femoral [employer] Delta [id number] - [id number] Implanted:Qty: 1 on 06/28/2022 by Candido Mosqueda MD at [facility] Right: Hip [employer] [id number] 03/20/2027 13168677 / / [id number] Procedures Procedure Name Priority Date/Time Associated Diagnosis Comments SCREENING MAMMOGRAM BILATERAL W JOSE LUIS Schedule Routine, Read Routine (OP Routine) 06/12/2023 11:19 AM AIR DRILL OPERATOR Encounter for screening mammogram for malignant neoplasm of breast from Last 3 Months or Most Recently Relevant to Health Maintenance Results * Screening Mammogram Bilateral W Jose Luis (06/12/2023 11:19 AM AIR DRILL OPERATOR) Anatomical Region Laterality Modality Breast Bilateral Mammography Impressions 06/12/2023 11:45 AM AIR DRILL OPERATOR BI-RADS ATLAS category (overall): 1 - Negative There is no mammographic evidence of malignancy. A 1 year screening mammogram is recommended. The patient has been or will be contacted. We recommend annual screening mammography for women at average risk of breast cancer beginning at age 40, based on guidelines of the [place] [employer] (ACR Practice Parameter for the Performance of Screening and Diagnostic Mammography) and [place]. For women with and elevated risk of breast cancer, please refer to the ACR Practice Parameter for specific screening recommendations. The patient will be entered into a reminder system with a target due date of 1 year for her next screening exam. Narrative 06/12/2023 11:45 AM AIR DRILL OPERATOR Screening Mammogram Bilateral W Jose Luis: 06/12/23 [...] Most Recently Relevant to Health Maintenance Insurance [facility] CLAIMS [facility] CLAIMS MEDICARE MEDICARE FOR LIFE Advance Directives For more information, please contact: [phone] Documents on File Type Date Recorded Patient Head Neck Surgeon Expl anation Advance Directives and Livin g [...] 4:30 PM 09/08/2020 7:07 PM Care Teams Auto Emissions Technician Relationship Specialty Start Date End Date Sarath Boston MD [address] [place], [place] [address], [place] [address] PCP - General Family Medicine 11/30/20 Candido Mosqueda MD [address] [place] [address] Consulting Physician Orthopedic Surgery 09/08/20
--- OUTSIDE RECORDS SUMMARY | 2024-09-14 19:36 | XMS_ITS | Encounter Summary ---
Author Organization [facility] Address [address] [place] [address] Care Team Providers Care Cylinder Worker Name Role Phone Unavailable Primary Care Provider Unavailabl e Encounter Details Date Type Department Care Team (Late st Contact Info) Description 07/12/2019 Lab Requisition [facility] Derm[facility] Lab [address] [place] [address] Eliazar Harris MD [address] [address] Social History Tobacco Use Types Packs/Day Years Used Date Smoking Tobacco: Never Assessed Comments Unknown Sex and Gender Information Value Date Recorded Sex Assigned at Not on file Legal Sex Female 10:43 AM GILL NET STRINGER Gender Identity Not on file Sexual Orientation Not on file documented as of this encounter Plan of Treatment Not on file documented as of this encounter Procedures Procedure Name Priority Date/Time Associated Diagnosis Comments DERMATOPATHOLOGY Routine 07/08/2019 12:0 0 AM GILL NET STRINGER documented in this encounter Results * DERMATOPATHOLOGY (07/08/2019 12:00 AM GILL NET STRINGER) Case Report Dermatopathology Report Case: [id number] Authorizing Provider: Eliazar Harris MD Collected: 07/08/2019 12:00 AM Ordering Location: [facility]erm[facility] Lab Received: 07/12/2019 11:01 AM Pathologist: Kena Cortés MD Specimens: A) - Skin, left FA B) - Skin, right hand 0 1:01 PM GILL NET STRINGER DERMATOPATHOLOGY LABORATORY Final Diagnosis Specimen A. SKIN, left FA: HYPERTROPHIC ACTINIC KERATOSIS, PIGMENTED (L57.0) Specimen B. SKIN, right hand: BENIGN VERRUCOUS KERATOSIS (L82.1) EPIDERMAL NECROSIS SUGGESTIVE OF EXCORIATION (L98.499) 0 1:01 PM [facility] DERMATOPATHOLOGY [facility]ORATORY Clinical History A: Nevus vs MM vs other. 43J495. B: Dermatitis vs prurigo. 82Q392. 0 1:01 PM [facility] DERMATOPATHOLOGY LABORATORY Gross Description Specimen A: Received is one formalin filled container labeled with the patient's name and designated left FA. The specimen consists of a shave biopsy measuring 8g7e3vi. Jar 0. Specimen B: Received is one formalin filled container labeled with the patient's name and designated right hand. The specimen consists of a shave biopsy measuring 6v9w4ii. Jar 0. 0 1:01 PM [facility] DERMATOPATHOLOGY [facility]ORATORY Microscopic Description Specimen A. SKIN, [...] fibrin at the base. 0 1:01 PM [facility] DERMATOPATHOLOGY LABORATORY Disclaimer An external and internal positive and negative controls are appropriate for the histochemical, immunohistochemical and immunofluorescence stain(s) in this case (if any), except where stated explicitly. The performance characteristics of the stain(s) cited in this report were developed and its performance characteristic determined by the Dermatopathology Laboratory at [facility], directed by Dr. Ginny Cortés. These tests need not be, and therefore are not, approved by the [place] Food and Drug Administration. The tests are used for clinical purposes. Billing Codes Specimen Charges Stain Charges 59543 74565 1 1 0 1:01 PM [facility] DERMATOPATHOLOGY [facility]ORATORY Embedded Images 0 1:01 PM [facility] DERMATOPATHOLOGY [facility]ORATORY Pathology/Cytology TISSUE SPECIMEN FROM SKIN / Unknown 07/08/2019 07/12/2019 11:01 AM [facility] Miscellaneous samples (specimen) TISSUE SPECIMEN FROM SKIN / Unknown 07/08/2019 07/12/2019 11:01 AM GILL NET STRINGER us Eliazar Harris MD LAB - PATHOLOGY/CYTOLOGY ORDER JOYCE Final Result DERMATOPATHOLOGY LABORATORY [facility] - Department of Dermatology [address] [place] [address], [address] [place] [address], [facility] [phone] documented in this encounter Visit Diagnoses Not on filedocumented in this encounter
== END 2024-09-14 20:43 | disposition home or self-care (01) ==
PROVIDERS: Emergency Provider Student in an Organized Health Care Education/Training Program; PCP Family Medicine
DX: G43.909 Migraine, unspecified, not intractable, without status migrainosus (principal); Z20.822 Contact with and (suspected) exposure to COVID-19; M19.90 Unspecified osteoarthritis, unspecified site
CPT/HCPCS: 36415; 80053; 83690; 85025; 87637; 96361; 96374; 96375; 99284; J0780; J1200; J1885; J7030

== ENCOUNTER 2024-09-15 16:25 | Outpatient (CLI) | payer MEDICARE, OTHER, SELFPAY ==
[2024-09-15 17:16] LABS: Erythrocyte Sedimentation Rate 21 mm/hr (0-20)
--- OUTSIDE RECORDS SUMMARY | 2024-09-15 17:39 | XMS_ITS | Referral Summary ---
Author Organization [facility] Address [address] [place] [address] Care Team Providers Care Pulmonologist/Intensivist Name Role Phone Candido Mosqueda MD Unavailable [phone] Sarath Boston MD Primary Care Provider [phone] Allergies Active Allergy Reactions Criticality Noted Date Comments Adhesive Redness Low 08/15/2020 Clindamycin Nausea & Vomiting Low 05/23/2022 Erythromycin Stomach upset Low 06/13/2020 Stomach/GI Upset Morphine Hallucinations Medium 08/15/2020 Qgnabknq-Lxwbbkbjue-Opm ymyxin Swelling Medium 08/15/2020 redness Penicillins Unknown [...] (05/14/2022): Added automatically from request for surgery [id number] Hoarseness 02/04/2021 Shortness of breath 02/04/2021 Intractable vomiting 09/13/2020 History of total left hip replacement 09/13/2020 Primary osteoarthritis of left hip 08/10/2020 Overview (08/10/2020): Added automatically from request for surgery [id number] Arthralgia of shoulder 02/18/2012 Aerophagia Immunizations Immunization Administration Dates Next Due [employer] (J[employer]J) SARS-CoV-2 Vaccination 08/03/2020 Social History Tobacco [...] on file Legal Sex Female 9:29 PM KITCHEN UTILITY ASSOCIATE Gender Identity Not on file Sexual Orientation Not on file 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 file Not on file Not on file Last Filed Vital Signs Vital Sign Reading Time Taken Comments Blood Pressure 107/59 06/29/2022 8:15 AM KITCHEN UTILITY ASSOCIATE Pulse 68 06/29/2022 8:15 AM KITCHEN UTILITY ASSOCIATE Temperature 36.3 C (97.4 F) 06/29/2022 4:00 AM KITCHEN UTILITY ASSOCIATE Respiratory Rate 16 06/29/2022 8:15 AM KITCHEN UTILITY ASSOCIATE Oxygen Saturation 100% 06/29/2022 8:15 AM KITCHEN UTILITY ASSOCIATE Inhaled Oxygen Concentration - - Weight 66.3 kg (146 lb 2.6 oz) 06/28/2022 8:00 A M KITCHEN UTILITY ASSOCIATE Height 172.7 cm (5' 8 ) 06/28/2022 8:00 AM KITCHEN UTILITY ASSOCIATE Body Mass Index 22.22 06/28/2022 8:00 AM KITCHEN UTILITY ASSOCIATE Plan of Treatment Not on file Medical Devices Implanted Type Area Field Test Engineer Device Identifier Shelf Expiration Date Model / Serial / Lot [employer] [id number] Screw Bone Trident Ii L35mm Od6.5mm Low Profile Hexagonal Sterile - [id number] Implanted:Qty: 1 on 09/07/2020 by Candido Mosqueda MD at [facility] Left: Hip [employer] [id number] 11/21/2024 8023-0206 / / [id number] [place] Bi[employer] Bone Preparation Kit Medium Restrictor Implanted:Qty: 1 on 09/07/2020 by Candido Mosqueda MD at [facility] Left: Hip [employer] 02/23/2025 9169-919-381 / / [id number] Description:item listed / ch arged on supply screen [employer] [id number] V40 36mm Anatomic Hip +0mm Offset Taper Head Femoral Biolox Delta - [id number] Implanted:Qty: 1 on 09/07/2020 by Candido Mosqueda MD at [facility] Left: Hip [employer] [id number] 05/16/2025 [id number] / / [id number] [employer] 3966-7643 Screw Bone Trident Ii L50mm Od6.5mm Low Profile Hexagonal Sterile - [id number] Implanted:Qty: 1 on 09/07/2020 by Candido Mosqueda MD at [facility] Left: Hip [employer] [id number] 03/31/2024 6818-3719 / / [id number] [employer] 702--56f Shell Acetabular Trident Ii Tritanium F Od56mm Hip 5 Screw Hole Cluster Sterile - [id number] Implanted:Qty: 1 on 09/07/2020 by Candido Mosqueda MD at [facility] Left: Hip [employer] [id number] 04/25/2025 702-04-56F / / [id number] [employer] 1241-2956 Screw Bone Trident Ii L35mm Od6.5mm Low Profile Hexagonal Sterile - [id number] Implanted:Qty: 1 on 09/07/2020 by Candido Mosqueda MD at [facility] Left: Hip [employer] [id number] 05/04/2024 6958-5306 / / [id number] [employer] 1389-3429 Screw Bone Trident Ii L20mm Od6.5mm Low Profile Hexagonal Sterile - [id number] Implanted:Qty: 1 on 09/07/2020 by Candido Mosqueda MD at [facility] Left: Hip [employer] [id number] 03/28/2025 0354-7947 / / [id number] [employer] 623-00-36f 36mm 7.9mm Hip 0d F Liner Acetabular X3 - [id number] Implanted:Qty: 1 on 09/07/2020 by Candido Mosqueda MD at [facility] Left: Hip [employer] [id number] 06/19/2025 623-00-36F / / [id number] [employer] 6191-1-010 Simplex P Radiopaque Full Dose Cement Bone Sterile - [id number] Implanted:Qty: 1 on 09/07/2020 by Candido Mosqueda MD at [facility] Left: Hip [employer] 05/25/2021 6191-1-010 / / [id number] [employer] 6191-1-010 Simplex P Radiopaque Full Dose Cement Bone Sterile - [id number] Implanted:Qty: 1 on 09/07/2020 by Candido Mosqueda MD at [facility] Left: Hip [employer] 05/25/2021 6191-1-010 / / [id number] [employer] 0580-1-442 [place] V40 Cemented Hip 2 44mm Offset Stem Femoral - [id number] - [id number] Implanted:Qty: 1 on 09/07/2020 by Candido Mosqueda MD at [facility] Left: Hip [employer] [id number] 07/08/2021 0580-1-442 / [id number] / [id number] [employer] Simplex P Radiopaque Full Dose Cement Bone Sterile 6191-1-010 - [id number] Implanted:Qty: 1 on 06/28/2022 by Candido Mosqueda MD at [facility] Right: Hip [employer] 11/22/2024 6191-1-010 / / [id number] [employer] Simplex P Radiopaque Full Dose Cement Bone Sterile 6191-1-010 - [id number] Implanted:Qty: 1 on 06/28/2022 by Candido Mosqueda MD at [facility] Right: Hip [employer] 11/22/2024 6191-1-010 / / [id number] [employer] Bioprep Preparation Plug Nail Cutter [place] Curette Suction Femoral [id number] - [id number] Implanted:Qty: 1 on 06/28/2022 by Candido Mosqueda MD at [facility] Right: Hip [employer] 02/23/2027 [id number] / / [id number] [employer] Shell Acetabular Trident Ii Tritanium E Od54mm Hip 5 Screw Hole Cluster Sterile 702-04-54e - [id number] Implanted:Qty: 1 on 06/28/2022 by Candido Mosqueda MD at [facility] Right: Hip [employer] [id number] 04/03/2027 702-04-54E / / [id number] [employer] Screw Bone Trident Ii L50mm Od6.5mm Low Profile Hexagonal Sterile 2878-1272 - [id number] Implanted:Qty: 1 on 06/28/2022 by Candido Mosqueda MD at [facility] Right: Hip [employer] [id number] 03/19/2027 5622-7586 / / [id number] [employer] Screw Bone Trident Ii L25mm Od6.5mm Low Profile Hexagonal Sterile 2646-9181 - [id number] Implanted:Qty: 1 on 06/28/2022 by Candido Mosqueda MD at [facility] Right: Hip [employer] [id number] 04/29/2027 7464-3666 / / [id number] [employer] Insert Trident 0deg X3 36mm Id 723-00-36e - [id number] Implanted:Qty: 1 on 06/28/2022 by Candido Mosqueda MD at [facility] Right: Hip [employer] [id number] 04/26/2027 723-00-36E / / [id number] [employer] [place] V40 Cemented Hip 1 37.5mm Offset Stem Femoral 0580-1-371 - [id number] - [id number] Implanted:Qty: 1 on 06/28/2022 by Candido Mosqueda MD at [facility] Right: Hip [employer] [id number] 01/30/2027 0580-1-371 / [id number] / [id number] [employer] V40 36mm Anatomic Hip +0mm Offset Taper Head Femoral Biolox Delta [id number] - [id number] Implanted:Qty: 1 on 06/28/2022 by Cnadido Mosqueda MD at [facility] Right: Hip [employer] [id number] 03/20/2027 44772958 / / [id number] Procedures Procedure Name Priority Date/Time Associated Diagnosis Comments SCREENING MAMMOGRAM BILATERAL W JOSE LUIS Schedule Routine, Read Routine (OP Routine) 06/12/2023 11:19 AM KITCHEN UTILITY ASSOCIATE Encounter for screening mammogram for malignant neoplasm of breast from Last 3 Months or Most Recently Relevant to Health Maintenance Results * Screening Mammogram Bilateral W Jose Luis (06/12/2023 11:19 AM KITCHEN UTILITY ASSOCIATE) Anatomical Region Laterality Modality Breast Bilateral Mammography Impressions 06/12/2023 11:45 AM KITCHEN UTILITY ASSOCIATE BI-RADS ATLAS category (overall): 1 - Negative There is no mammographic evidence of malignancy. A 1 year screening mammogram is recommended. The patient has been or will be contacted. We recommend annual screening mammography for women at average risk of breast cancer beginning at age 40, based on guidelines of the [place] [employer] (ACR Practice Parameter for the Performance of Screening and Diagnostic Mammography) and [employer]. For women with and elevated risk of breast cancer, please refer to the ACR Practice Parameter for specific screening recommendations. The patient will be entered into a reminder system with a target due date of 1 year for her next screening exam. Narrative 06/12/2023 11:45 AM KITCHEN UTILITY ASSOCIATE Screening Mammogram Bilateral W Jose Luis: 06/12/23 [...] Most Recently Relevant to Health Maintenance Insurance [facility] CLAIMS [facility] CLAIMS MEDICARE MEDICARE [facility] Advance Directives For more information, please contact: [phone] Documents on File Type Date Recorded Patient Plate Molder Expl anation Advance Directives and Livin g [...] 4:30 PM 09/08/2020 7:07 PM Care Teams Pulmonologist/Intensivist Relationship Specialty Start Date End Date Sarath Boston MD [address] [place] [address] PCP - General Family Medicine 11/30/20 Candido Mosqueda MD [address] [address] Consulting Physician Orthopedic Surgery 09/08/20
--- OUTSIDE RECORDS SUMMARY | 2024-09-15 17:39 | XMS_ITS | Clinical Summary ---
Author Organization [facility] Address [facility] [place] [address] Care Team Providers Care Greeting Card Editor Name Role Phone Sarath Boston MD Primary Care Provider [phone] Allergies Active Allergy Reactions Criticality Noted Date [...] (04/03/2021): Added automatically from request for surgery [id number] Arthralgia of shoulder 02/18/2012 Immunizations Immunization Administration Dates Next Due Hepatitis A (Havrix 1440 [address]) 06/24/2018 Influenza Adult (Generic) 01/24/2022,04/2021,02/10/2020,2018,06/11/2018,04/12/2016 [employer] ([employer]) COVID-19 AD26 VACCINE 0.5 ML IM SUSP [...] Comments Blood Pressure 128/88 04/09/2024 10:52 AM BILLING CLINICIAN Pulse 72 04/09/2024 10:52 AM BILLING CLINICIAN Temperature 36.5 C (97.7 F) 04/09/2024 10:52 AM BILLING CLINICIAN Respiratory Rate 18 04/09/2024 10:52 AM BILLING CLINICIAN Oxygen Saturation 99% 04/09/2024 10:52 AM BILLING CLINICIAN RA Inhaled Oxygen Concentration - - Weight 69.4 kg (153 lb) 04/09/2024 10:52 AM BILLING CLINICIAN Height 172.7 cm (5' 8 ) 04/09/2024 10:52 AM BILLING CLINICIAN Body Mass Index 23.26 04/09/2024 10:52 AM BILLING CLINICIAN Plan of Treatment Health Maintenance Due Date Last Done Comments Hepatitis C 1974 Pneumococcal Vaccine: 50+ Years (1 of 2 - PCV) 1975 Zoster Vaccines (1 of 2) 2006 RSV Immunization or 60+ Years (1 - Risk 60-74 years 1-dose series) 2016 Annual Medicare Wellness Visit 2021 Dexa Scan (General) 2021 COVID-19 Vaccine (3 - 2023-2 5 season) 2024 03/23/2021, 08/03/2020 PHQ-2 (Physician [place]) 05/26/2024 09/13/2022 Mammogram Screening 06/12/2025 06/12/2023, 08/04/2017 [...] Most Recently Rele[facility] to Health [facility] Care Teams Greeting Card Editor Relationship Specialty Start Date End Date Sarath Boston MD [address] [place] [id number] PCP - General FAMILY PRACTICE 12/25/20
--- OUTSIDE RECORDS SUMMARY | 2024-09-15 17:39 | XMS_ITS | Clinical Summary ---
Author Organization [facility] [place] Address [facility] [place] [address] Care Team Providers Care Pit Manager Name Role Phone Candido Mosqueda MD Unavailable [phone] Sarath Boston MD Primary Care Provider [phone] Allergies Active Allergy Reactions Criticality Noted Date Comments Adhesive Redness Low 08/15/2020 Clindamycin Nausea & Vomiting Low 05/23/2022 Erythromycin Stomach upset Low 06/13/2020 Stomach/GI Upset Morphine Hallucinations Medium 08/15/2020 Uukdhgik-Hrpwjuujwc-Sql ymyxin Swelling Medium 08/15/2020 redness Penicillins Unknown [...] (05/14/2022): Added automatically from request for surgery [id number] Hoarseness 02/04/2021 Shortness of breath 02/04/2021 Intractable vomiting 09/13/2020 History of total left hip replacement 09/13/2020 Primary osteoarthritis of left hip 08/10/2020 Overview (08/10/2020): Added automatically from request for surgery [id number] Arthralgia of shoulder 02/18/2012 Aerophagia Immunizations Immunization Administration Dates Next Due [employer] ([employer]) SARS-CoV-2 Vaccination 08/03/2020 Surgical History Surgery [...] on file Legal Sex Female 9:29 PM PORT ENGINEER Gender Identity Not on file Sexual Orientation Not on file 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 Not on file Not on file Not on file Obstetrics History Para Term AB IAB SAB Ectopic Multiple Livin g Live Births 3 3 3 Date Outcome GA Total Labor Labor/2nd/3rd Weight Sex Type Anes PTL Jacquie A1 A5 Name Clin Term Term Term Last Filed Vital Signs Vital Sign Reading Time Taken Comments Blood Pressure 107/59 06/29/2022 8:15 AM PORT ENGINEER Pulse 68 06/29/2022 8:15 AM PORT ENGINEER Temperature 36.3 C (97.4 F) 06/29/2022 4:00 AM PORT ENGINEER Respiratory Rate 16 06/29/2022 8:15 AM PORT ENGINEER Oxygen Saturation 100% 06/29/2022 8:15 AM PORT ENGINEER Inhaled Oxygen Concentration - - Weight 66.3 kg (146 lb 2.6 oz) 06/28/2022 8:00 A M PORT ENGINEER Height 172.7 cm (5' 8 ) 06/28/2022 8:00 AM PORT ENGINEER Body Mass Index 22.22 06/28/2022 8:00 AM PORT ENGINEER Plan of Treatment Health Maintenance Due Date [...] 06/24/2028 06/24/2018 Medical Devices Implanted Type Area Vtc Technician Device Identifier Shelf Expiration Date Model / Serial / Lot [employer] [id number] Screw Bone Trident Ii L35mm Od6.5mm Low Profile Hexagonal Sterile - [id number] Implanted:Qty: 1 on 09/07/2020 by Candido Mosqueda MD at [facility] Left: Hip [employer] [id number] 11/21/2024 8999-5322 / / [id number] [employer] Bone Preparation Kit Medium Restrictor Implanted:Qty: 1 on 09/07/2020 by Candido Mosqueda MD at [facility] Left: Hip [employer] 02/23/2025 3655-300-305 / / [id number] Description:item listed / ch arged on supply screen [employer] [id number] V40 36mm Anatomic Hip +0mm Offset Taper Head Femoral Biolox Delta - [id number] Implanted:Qty: 1 on 09/07/2020 by Candido Mosqueda MD at [facility] Left: Hip [employer] [id number] 05/16/2025 15265933 / / [id number] [employer] 9241-1444 Screw Bone Trident Ii L50mm Od6.5mm Low Profile Hexagonal Sterile - [id number] Implanted:Qty: 1 on 09/07/2020 by Candido Mosqueda MD at [facility] Left: Hip [employer] [id number] 03/31/2024 4851-8830 / / 3DC [employer] [id number] Shell Acetabular Trident Ii Tritanium F Od56mm Hip 5 Screw Hole Cluster Sterile - [id number] Implanted:Qty: 1 on 09/07/2020 by Candido Mosqueda MD at [facility] Left: Hip [employer] [id number] 04/25/2025 702-04-56F / / [id number] [employer] 5903-6319 Screw Bone Trident Ii L35mm Od6.5mm Low Profile Hexagonal Sterile - [id number] Implanted:Qty: 1 on 09/07/2020 by Candido Mosqueda MD at [facility] Left: Hip [employer] [id number] 05/04/2024 9366-5574 / / [id number] [employer] 1513-0906 Screw Bone Trident Ii L20mm Od6.5mm Low Profile Hexagonal Sterile - [id number] Implanted:Qty: 1 on 09/07/2020 by Candido Mosqueda MD at [facility] Left: Hip [employer] [id number] 03/28/2025 9082-9486 / / [id number] [employer] 623-00-36f 36mm 7.9mm Hip 0d F Liner Acetabular X3 - [id number] Implanted:Qty: 1 on 09/07/2020 by Candido Mosqueda MD at [facility] Left: Hip [employer] [id number] 06/19/2025 623-00-36F / / [id number] [employer] 6191-1-010 Simplex P Radiopaque Full Dose Cement Bone Sterile - [id number] Implanted:Qty: 1 on 09/07/2020 by Candido Mosqueda MD at [facility] Left: Hip [employer] 05/25/2021 6191-1-010 / / [id number] [employer] 6191-1-010 Simplex P Radiopaque Full Dose Cement Bone Sterile - [id number] Implanted:Qty: 1 on 09/07/2020 by Candido Mosqueda MD at [facility] Left: Hip [employer] 05/25/2021 6191-1-010 / / [id number] [employer] 0580-1-442 [place] V40 Cemented Hip 2 44mm Offset Stem Femoral - [id number] - [id number] Implanted:Qty: 1 on 09/07/2020 by Candido Mosqueda MD at [facility] Left: Hip [employer] [id number] 07/08/2021 0580-1-442 / [id number] 1 / [id number] [employer] Simplex P Radiopaque Full Dose Cement Bone Sterile 6191-1-010 - [id number] Implanted:Qty: 1 on 06/28/2022 by Candido Mosqueda MD at [facility] Right: Hip [employer] 11/22/2024 6191-1-010 / / [id number] [employer] Simplex P Radiopaque Full Dose Cement Bone Sterile 6191-1-010 - [id number] Implanted:Qty: 1 on 06/28/2022 by Candido Mosqueda MD at [facility] Right: Hip [employer] 11/22/2024 6191-1-010 / / [id number] [employer] Bioprep Preparation Plug Senior Benefits Manager [place] Curette Suction Femoral [id number] - [id number] Implanted:Qty: 1 on 06/28/2022 by Candido Mosqueda MD at [facility] Right: Hip [employer] 02/23/2027 [id number] / / [id number] [employer] Shell Acetabular Trident Ii Tritanium E Od54mm Hip 5 Screw Hole Cluster Sterile 702-04-54e - [id number] Implanted:Qty: 1 on 06/28/2022 by Candido Mosqueda MD at [facility] Right: Hip [employer] [id number] 04/03/2027 702-04-54E / / [id number] [employer] Screw Bone Trident Ii L50mm Od6.5mm Low Profile Hexagonal Sterile 9158-6240 - [id number] Implanted:Qty: 1 on 06/28/2022 by Candido Mosqueda MD at [facility] Right: Hip [employer] [id number] 03/19/2027 7953-5768 / / XJS [employer] Screw Bone Trident Ii L25mm Od6.5mm Low Profile Hexagonal Sterile 9379-6086 - [id number] Implanted:Qty: 1 on 06/28/2022 by Candido Mosqueda MD at [facility] Right: Hip [employer] [id number] 04/29/2027 8001-2393 / / [id number] [employer] Insert Trident 0deg X3 36mm Id 723-00-36e - [id number] Implanted:Qty: 1 on 06/28/2022 by Candido Mosqueda MD at [facility] Right: Hip [employer] [id number] 04/26/2027 723-00-36E / / [id number] [employer] [place] V40 Cemented Hip 1 37.5mm Offset Stem Femoral 0580-1-371 - [id number] - [id number] Implanted:Qty: 1 on 06/28/2022 by Candido Mosqueda MD at [facility] Right: Hip [employer] [id number] 01/30/2027 0580-1-371 / [id number] / [id number] [employer] V40 36mm Anatomic Hip +0mm Offset Taper Head Femoral Biolox Delta [id number] - [id number] Implanted:Qty: 1 on 06/28/2022 by Candido Mosqueda MD at [facility] Right: Hip [employer] [id number] 03/20/2027 50669050 / / [id number] Procedures Procedure Name Priority Date/Time Associated Diagnosis Comments SCREENING MAMMOGRAM BILATERAL W JOSE LUIS Schedule Routine, Read Routine (OP Routine) 06/12/2023 11:19 AM PORT ENGINEER Encounter for screening mammogram for malignant neoplasm of breast from Last 3 Months or Most Recently Relevant to Health Maintenance Results * Screening Mammogram Bilateral W Jose Luis (06/12/2023 11:19 AM PORT ENGINEER) Anatomical Region Laterality Modality Breast Bilateral Mammography Impressions 06/12/2023 11:45 AM PORT ENGINEER BI-RADS ATLAS category (overall): 1 - Negative There is no mammographic evidence of malignancy. A 1 year screening mammogram is recommended. The patient has been or will be contacted. We recommend annual screening mammography for women at average risk of breast cancer beginning at age 40, based on guidelines of the [employer] (ACR Practice Parameter for the Performance of Screening and Diagnostic Mammography) and [employer]. For women with and elevated risk of breast cancer, please refer to the ACR Practice Parameter for specific screening recommendations. The patient will be entered into a reminder system with a target due date of 1 year for her next screening exam. Narrative 06/12/2023 11:45 AM PORT ENGINEER Screening Mammogram Bilateral W Jose Luis: 06/12/23 [...] Most Recently Relevant to Health Maintenance Insurance [facility] CLAIMS [facility] CLAIMS MEDICARE MEDICARE FOR LIFE Advance Directives For more information, please contact: [phone] Documents on File Type Date Recorded Patient Ceiling Insulation Blower Expl anation Advance Directives and Livin g [...] 4:30 PM 09/08/2020 7:07 PM Care Teams Pit Manager Relationship Specialty Start Date End Date Sarath Boston MD [address] [place], [place] [address] [address] PCP - General Family Medicine 11/30/20 Candido Mosqueda MD [address] [facility] [address] [place] [address] Consulting Physician Orthopedic Surgery 09/08/20
--- OUTSIDE RECORDS SUMMARY | 2024-09-15 17:40 | XMS_ITS | Encounter Summary ---
Author Organization [facility] Address [address] [place] [address] Care Team Providers Care Electrophysiology Technician Name Role Phone Unavailable Primary Care Provider Unavailabl e Encounter Details Date Type Department Care Team (Late st Contact Info) Description 07/12/2019 Lab Requisition [facility] [address] [place] [phone] Eliazar Harris MD [address] [place] [address] Social History Tobacco Use Types Packs/Day Years Used Date Smoking Tobacco: Never Assessed Comments Unknown Sex and Gender Information Value Date Recorded Sex Assigned at Not on file Legal Sex Female 10:43 AM RESTAURANT RECRUITER Gender Identity Not on file Sexual Orientation Not on file documented as of this encounter Plan of Treatment Not on file documented as of this encounter Procedures Procedure Name Priority Date/Time Associated Diagnosis Comments DERMATOPATHOLOGY Routine 07/08/2019 12:0 0 AM RESTAURANT RECRUITER documented in this encounter Results * DERMATOPATHOLOGY (07/08/2019 12:00 AM RESTAURANT RECRUITER) Case Report Dermatopathology Report Case: [id number] Authorizing Provider: Eliazar Harris MD Collected: 07/08/2019 12:00 AM Ordering Location: [facility] Received: 07/12/2019 11:01 AM Pathologist: Kena Cortés MD Specimens: A) - Skin, left FA B) - Skin, right hand 0 1:01 PM RESTAURANT RECRUITER DERMATOPATHOLOGY LABORATORY Final Diagnosis Specimen A. SKIN, left FA: HYPERTROPHIC ACTINIC KERATOSIS, PIGMENTED (L57.0) Specimen B. SKIN, right hand: BENIGN VERRUCOUS KERATOSIS (L82.1) EPIDERMAL NECROSIS SUGGESTIVE OF EXCORIATION (L98.499) 0 1:01 PM [facility] DERMATOPATHOLOGY LABORATORY Clinical History A: Nevus vs MM vs other. 19G536. B: Dermatitis vs prurigo. 66M414. 0 1:01 PM [facility] DERMATOPATHOLOGY LABORATORY Gross Description Specimen A: Received is one formalin filled container labeled with the patient's name and designated left FA. The specimen consists of a shave biopsy measuring [id number]. Jar 0. Specimen B: Received is one formalin filled container labeled with the patient's name and designated right hand. The specimen consists of a shave biopsy measuring [id number]. Jar 0. 0 1:01 PM [facility] DERMATOPATHOLOGY LABORATORY Microscopic Description Specimen A. [...] fibrin at the base. 0 1:01 PM [facility] DERMATOPATHOLOGY LABORATORY Disclaimer An external and internal positive and negative controls are appropriate for the histochemical, immunohistochemical and immunofluorescence stain(s) in this case (if any), except where stated explicitly. The performance characteristics of the stain(s) cited in this report were developed and its performance characteristic determined by the Dermatopathology Laboratory at [facility], directed by Dr. Ginny Cortés. These tests need not be, and therefore are not, approved by the [place] Food and Drug Administration. The tests are used for clinical purposes. Billing Codes Specimen Charges Stain Charges 08029 59547 1 1 0 1:01 PM [facility] DERMATOPATHOLOGY LABORATORY Embedded Images 0 1:01 PM [facility] DERMATOPATHOLOGY LABORATORY Pathology/Cytology TISSUE SPECIMEN FROM SKIN / Unknown 07/08/2019 07/12/2019 11:01 AM [facility] Miscellaneous samples (specimen) TISSUE SPECIMEN FROM SKIN / Unknown 07/08/2019 07/12/2019 11:01 AM RESTAURANT RECRUITER us Eliazar Harris MD LAB - PATHOLOGY/CYTOLOGY ORDER JOYCE Final Result DERMATOPATHOLOGY LABORATORY [facility] - Department of Dermatology [address] [place] [address], [address]th [place] [address], [facility] [phone] documented in this encounter Visit Diagnoses Not on filedocumented in this encounter
--- OUTSIDE RECORDS SUMMARY | 2024-09-15 17:40 | XMS_ITS | Continuity of Care Document ---
Author Name [facility] Organization [facility] Care Team Providers Care Milk Collector Name Role Phone [facility] Unavailable Unavailable Medications Combined list of outpatient [...] AUROBINDO PHARM, 100 ea. BOTTLE Cancele d [id number] : 2023 0 Pharmac y Data Transac tion Service Facilit y CELECOXIB (celecoxib) , 200 MG, CAPSULE, ORAL, AUROBINDO PHARM, 100 ea. BOTTLE Active [id number] 4 2023 14 Pharmac y Data Transac tion Service Facilit y DUPIXENT PEN (dupilumab) , 300 MG/2ML, PEN INJCTR, SUBCUT, SANOFI-AVEN TIS, 2 ml SYRINGE Cancele d [id number] : 2023 0 Pharmac y Data Transac tion Service Facilit y DUPIXENT PEN (dupilumab) , 300 MG/2ML, PEN INJCTR, SUBCUT, SANOFI-AVEN TIS, 2 ml SYRINGE Active [id number] 2023 8 Pharmac y Data Transac tion Service Facilit y DUPIXENT PEN (dupilumab) , 300 MG/2ML, PEN INJCTR, SUBCUT, SANOFI-AVEN TIS, 2 ml SYRINGE Active [id number] 4 2023 8 Pharmac y Data Transac tion Service Facilit y HYDROCODONE -ACETAMINOP HEN (HYDROCODON E/ACETAMINO PHEN), 5MG-325MG, TABLET, ORAL, MALLINCKROD T PH, 500 ea. BOTTLE Cancele d [id number] : 2023 0 Pharmac y Data Transac tion Service Facilit y HYDROCODONE -ACETAMINOP HEN (HYDROCODON E/ACETAMINO PHEN), 5MG-325MG, TABLET, ORAL, MALLINCKROD T PH, 500 ea. BOTTLE Active [id number] 2023 20 Pharmac y Data Transac tion Service Facilit y HYDROCODONE -ACETAMINOP HEN (HYDROCODON E/ACETAMINO PHEN), 7.5-325MG, TABLET, ORAL, MALLINCKROD T PH, 500 ea. BOTTLE Active [id number] 4 2023 90 Pharmac y Data Transac tion Service Facilit y HYDROCODONE -ACETAMINOP HEN (HYDROCODON E/ACETAMINO PHEN), 7.5-325MG, TABLET, ORAL, MALLINCKROD T PH, 500 ea. BOTTLE Active [id number] 4 2023 90 Pharmac y Data Transac tion Service Facilit y HYDROCODONE -ACETAMINOP HEN (HYDROCODON E/ACETAMINO PHEN), 7.5-325MG, TABLET, ORAL, MALLINCKROD T PH, 500 ea. BOTTLE Active [id number] 4 2023 90 Pharmac y Data Transac tion Service Facilit y HYDROCODONE -ACETAMINOP HEN (HYDROCODON E/ACETAMINO PHEN), 7.5-325MG, TABLET, ORAL, MALLINCKROD T PH, 500 ea. BOTTLE Active [id number] 4 2023 90 Pharmac y Data Transac tion Service Facilit y HYDROCODONE -ACETAMINOP HEN (HYDROCODON E/ACETAMINO PHEN), 7.5-325MG, TABLET, ORAL, MALLINCKROD T PH, 500 ea. BOTTLE Active [id number] 4 2023 90 Pharmac y Data Transac tion Service Facilit y HYDROXYZINE HCL (hydroxyzin e HCl), 25 MG, TABLET, ORAL, RISING PHARM, 500 ea. BOTTLE Active [id number] 4 2023 30 Pharmac y Data Transac tion Service Facilit y METHYLPREDN ISOLONE (methylpred nisolone), 4 MG, TAB DS PK, ORAL, Terabitz, 21 ea. DOSE-PACK Active [id number] 4 2023 21 Pharmac y Data Transac tion Service Facilit y PREGABALIN (pregabalin ), 200 MG, CAPSULE, ORAL, [facility], 90 ea. BOTTLE Cancele d [id number] : 2023 0 Pharmac y Data Transac tion Service Facilit y PREGABALIN (pregabalin ), 200 MG, CAPSULE, ORAL, EXELAN PHARMACE, 90 ea. BOTTLE Active [id number] 2023 120 Pharmac y Data Transac tion Service Facilit y PREGABALIN (pregabalin ), 200 MG, CAPSULE, ORAL, NOVADOZ PHARMAC, 90 ea. BOTTLE Active [id number] 4 2023 120 Pharmac y Data Transac tion Service Facilit y SCOPOLAMINE (scopolamin e), 1 MG/3 DAY, PATCH TD 3, TRANSDERM, INGENUS PHARMAC, 4 ea. BOX Active [id number] 4 2023 4 Pharmac y Data Transac tion Service Facilit y Immunizations Combined list of available immunizations from the Department of Defense and Veterans Affairs facilities. Immunization Series Date Given Administered By Site Reaction Lot Number CVX Code Drug Assistant Professor Of Education Status Comments Source COVID-19, mRNA, LNP-S, PF, 100 mcg or 50 mcg dose 2021 [employer] (MOD) Not Given COVID-19, mRNA, LNP-S, PF, 100 mcg or 50 mcg dose DoD zoster recombinant 2021 AMIRAH, () Not Given zoster recombina nt DoD COVID-19, mRNA, LNP-S, PF, 100 mcg or 50 mcg dose 2020 [employer] (MOD) Not Given COVID-19, mRNA, LNP-S, PF, 100 mcg or 50 mcg dose DoD Social History Combined list of available smoking, tobacco, and other social history from Department of Defense and Veterans Affairs facilities. Social History Type Response Date Comment [facility] e This section is an empty social history section. DoD
--- OUTSIDE RECORDS SUMMARY | 2024-09-15 17:40 | XMS_ITS | Encounter Summary ---
Author Organization [facility] Address [address] [place] [address] Care Team Providers Care Aviation Safety Technician Name Role Phone Sarath Boston MD Primary Care Provider [phone] Encounter Details Date Type Department Care Team (Late st Contact Info) Description 11/20/2022 MyChart Message Enc [facility] [address] [place], [place] [address] [employer], [facility] Provider Air Quality Message Social History Tobacco [...] Total Score: 0 04/03/20 21 8:37 AM FISH CUTTER documented as of this encounter Care Teams Aviation Safety Technician Relationship Specialty Start Date End Date Sarath Boston MD [address] [place] [id number] PCP - General FAMILY PRACTICE 12/25/20 documented as of this encounter
--- OUTSIDE RECORDS SUMMARY | 2024-09-15 17:40 | XMS_ITS | Encounter Summary ---
Author Organization [facility] Address [address] [place] [address] Care Team Providers Care Physician Credentialing Specialist Name Role Phone Unavailable Primary Care Provider Unavailabl e Encounter Details Date Type Department Care Team (Late st Contact Info) Description 07/30/2019 Lab Requisition [facility] Lab [address] [place] [phone] Eliazar Harris MD [address] [address] Social History Tobacco Use Types Packs/Day Years Used Date Smoking Tobacco: Never Assessed Comments Unknown Sex and Gender Information Value Date Recorded Sex Assigned at Not on file Legal Sex Female 10:43 AM JOURNEYMAN LINEMAN Gender Identity Not on file Sexual Orientation Not on file documented as of this encounter Plan of Treatment Not on file documented as of this encounter Procedures Procedure Name Priority Date/Time Associated Diagnosis Comments DERMATOPATHOLOGY Routine 07/28/2019 12:0 0 AM JOURNEYMAN LINEMAN documented in this encounter Results * DERMATOPATHOLOGY (07/28/2019 12:00 AM JOURNEYMAN LINEMAN) Case Report Dermatopathology Report Case: [id number] Authorizing Provider: Eliazar Harris MD Collected: 07/28/2019 12:00 AM Ordering Location: [facility] Lab Received: 07/30/2019 06:32 AM Pathologist: Ella Watts MD Specimen: Skin, right calf 0 1:54 PM CDT DERMATOPATHOLOGY LABORATORY Final Diagnosis Specimen A. SKIN, right calf: LICHEN SIMPLEX CHRONICUS (L28.0) STASIS DERMATITIS (L30.8) 0 1:54 PM CDT DERMATOPATHOLOGY LABORATORY Clinical History LP vs other. Path# [id number] 0 1:54 PM CDT DERMATOPATHOLOGY LABORATORY Gross [...] characteristic determined by the Dermatopathology Laboratory at [facility], directed by Dr. Ginny Cortés. These tests need not be, and therefore are not, approved by the [place] Food and Drug Administration. The tests are used for clinical purposes. Billing Codes Specimen Charges Stain Charges 92091 1 0 1:54 PM CDT DERMATOPATHOLOGY LABORATORY Embedded Images 0 1:54 PM CDT DERMATOPATHOLOGY LABORATORY Pathology/Cytolog y TISSUE SPECIMEN FROM SKIN / Unknown 07/28/2019 07/30/2019 6:32 AM JOURNEYMAN LINEMAN us Eliazar Harris MD LAB - PATHOLOGY/CYTOLOGY ORDER JOYCE Final Result DERMATOPATHOLOGY LABORATORY [facility] - Department of Dermatology [address] [place] [address], 5th [place] [address], [facility] [phone] documented in this encounter Visit Diagnoses Not on filedocumented in this encounter
--- OUTSIDE RECORDS SUMMARY | 2024-09-15 17:40 | XMS_ITS | Clinical Summary ---
Author Organization [facility] Address [address] [place] [address] Care Team Providers Care Director Fundraising Name Role Phone Unavailable Primary Care Provider Unavailabl e Source Comments [facility] [employer],non-owned Affiliates and Associated Physician Practices is amultiple site organization consisting of ambulatory clinics and hospital sitesin [place], [place], [place] and [place]. This disclosure is being madepursuant to the Care Everywhere program and may not contain all information available regarding this patient. Last updated 18.[facility] [employer] Social History Tobacco Use Types Packs/Day Years Used Date Smoking Tobacco: Never Assessed Comments Unknown Sex and Gender Information Value Date Recorded Sex Assigned at Not on file Legal Sex Female 10:43 AM PRINTER'S ASSISTANT Gender Identity Not on file Sexual Orientation [...]
--- OUTSIDE RECORDS SUMMARY | 2024-09-15 17:40 | XMS_ITS | Encounter Summary ---
Author Organization [facility] Address [address] [place] [address] Care Team Providers Care Physical Therapy Coordinator Name Role Phone Unavailable Primary Care Provider Unavailabl e Encounter Details Date Type Department Care Team (Latest Contact Info) Description 09/27/2008 Outpatient Historical [facility] NicholsMichel MD [address] [place] [address] [place] [phone] Uncomplicated Varicose Veins Social History Tobacco Use Types Packs/Day Years Used Date Smoking Tobacco: Never Assessed Comments Unknown Sex and Gender Information Value Date Recorded Sex Assigned at Not on file Legal Sex Female 5:43 AM 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
--- OUTSIDE RECORDS SUMMARY | 2024-09-15 17:40 | XMS_ITS | Encounter Summary ---
Author Organization [facility] Address [address] [place] [address] Care Team Providers Care Advertising Sales Representative Name Role Phone Unavailable Primary Care Provider Unavailabl e Encounter Details Date Type Department Care Team (Latest Contact Info) Description 10/31/2008 Outpatient Historical [facility] NicholsMichel MD [address] [place] [address] [place] [phone] Uncomplicated Varicose Veins Social History Tobacco Use Types Packs/Day Years Used Date Smoking Tobacco: Never Assessed Comments Unknown Sex and Gender Information Value Date Recorded Sex Assigned at Not on file Legal Sex Female 5:43 AM BREAD STACKER Gender Identity Not on file Sexual Orientation Not on file documented as of this encounter Plan of Treatment Not on file documented as of this encounter Visit Diagnoses Diagnosis Asymptomatic varicose veins documented in this encounter
--- OUTSIDE RECORDS SUMMARY | 2024-09-15 17:40 | XMS_ITS | Encounter Summary ---
Author Organization [facility] Address [address] [place] [address] Care Team Providers Care Metal Off Bearer Name Role Phone Unavailable Primary Care Provider Unavailabl e Encounter Details Date Type Department Care Team (Latest Contact Info) Description 08/09/2008 Outpatient Historical [facility] NicholsMichel MD [address] [place] [address] [place] [phone] Uncomplicated Varicose Veins Social History Tobacco Use Types Packs/Day Years Used Date Smoking Tobacco: Never Assessed Comments Unknown Sex and Gender Information Value Date Recorded Sex Assigned at Not on file Legal Sex Female 5:43 AM CABINET MOUNTER Gender Identity Not on file Sexual Orientation Not on file documented as of this encounter Plan of Treatment Not on file documented as of this encounter Visit Diagnoses Diagnosis Asymptomatic varicose veins documented in this encounter
--- OUTSIDE RECORDS SUMMARY | 2024-09-15 17:40 | XMS_ITS | Clinical Summary ---
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
== END 2024-09-15 16:26 | disposition home or self-care (01) ==
PROVIDERS: PCP Family Medicine
DX: R51.9 Headache, unspecified (principal); H57.10 Ocular pain, unspecified eye
CPT/HCPCS: 36415; 85652